=== PATIENT | female | born 1990 | race Caucasian/White ===

== ENCOUNTER 2017-07-21 10:46 | Emergency (ER) | payer OTHER ==
[~2017-07-21] VITALS: Ht 154.9 cm; Wt 83.9 kg
--- OUTSIDE RECORDS SUMMARY | 2017-07-21 10:51 | XMS REPORT | Continuity of Care Document ---
Author Author [facility] Address Unknown Phone Unavailable Allergies Medications Problems Date Dx Coded Attending Type Code Diagnosis Diagnosed By 05/26/2010 RADHA BOTELLO APRN V25.01 GENERAL COUNSELING ON PRESCRIPTION OF ORAL CONTRACEPTIVES 05/26/2010 CONY JACOB DO V25.01 GENERAL COUNSELING ON PRESCRIPTION OF ORAL CONTRACEPTIVES 09/07/2010 RADHA BOTELLO APRN 465.9 UPPER RESPIRATORY INFECTION 09/07/2010 RADHA BOTELLO APRN 525.9 TOOTH PAIN 09/07/2010 CONY JACOB DO 465.9 UPPER RESPIRATORY INFECTION 09/07/2010 CONY JACOB DO 525.9 TOOTH PAIN 06/18/2013 RADHA BOTELLO APRN 372.30 CONJUNCTIVITIS UNSPECIFIED 06/18/2013 CONY JACOB DO 372.30 CONJUNCTIVITIS UNSPECIFIED 09/28/2013 CONY JACOB DO 382.9 UNSPECIFIED OTITIS MEDIA 09/28/2013 CONY JACOB DO 461.9 SINUSITIS ACUTE 01/21/2015 ELIU JAMES Ot 626.2 Procedures Results Encounters ACCT No. Visit Date/Time Discharge Status Pt. Type Provider Facility Loc./Unit Complaint [id number] 09/28/2013 17:44:00 09/28/2013 23: 59:59 CLS Outpatient CONY JACOB DO [id number] 06/18/2013 18:16:00 06/18/2013 23: 59:59 CLS Outpatient RADHA BOTELLO APRN [id number] 01/05/2015 11:01:00 2014 23:59:59 CLS Outpatient ELIU JAMES Via [facility] RAD
[2017-07-21] MEDS ORDERED: ASPIRIN 81 MG CHEW (CHILDREN'S ASA) PO ONE (11:45)
[2017-07-21 11:49] LABS: BASOPHILS % (AUTO) 0 % (0-10); EOSINOPHILS # (AUTO) 0.2 10^3/uL (0.0-0.3); EOSINOPHILS % (AUTO) 2 % (0-10); LYMPHOCYTES # (AUTO) 2.8 X 10^3 (1.0-4.0); LYMPHOCYTES % (AUTO) 28 % (12-44); MEAN CORPUSCULAR HEMOGLOBIN 29 PG (25-34); MEAN CORPUSCULAR HGB CONC 35 G/DL (32-36); MEAN CORPUSCULAR VOLUME 83 FL (80-99); MEAN PLATELET VOLUME 10.3 FL (7.4-10.4); MONOCYTES # (AUTO) 0.9 X 10^3 (0.0-1.0); MONOCYTES % (AUTO) 9 % (0-12); NEUTROPHILS # (AUTO) 5.9 X 10^3 (1.8-7.8); NEUTROPHILS % (AUTO) 60 % (42-75); PLATELET COUNT 262 10^3/uL (130-400); RED BLOOD COUNT 5.28 10^6/uL (4.35-5.85); RED CELL DISTRIBUTION WIDTH 12.6 % (10.0-14.5); WHITE BLOOD COUNT 9.8 10^3/uL (4.3-11.0)
[2017-07-21 12:00] LABS: INR 0.9 (0.8-1.4); PROTHROMBIN TIME PATIENT 12.5 SEC (12.2-14.7)
[2017-07-21 12:11] LABS: ALANINE AMINOTRANSFERASE 43 U/L (0-55); ALBUMIN 4.4 GM/DL (3.2-4.5); AMYLASE 38 U/L (25-125); ANION GAP 11 MMOL/L (5-14); ASPARTATE AMINO TRANSFERASE 26 U/L (5-34); BILIRUBIN,TOTAL 0.4 MG/DL (0.1-1.0); BLOOD UREA NITROGEN 8 MG/DL (7-18); BUN/CREATININE RATIO 11; CALCIUM 9.8 MG/DL (8.5-10.1); CARBON DIOXIDE 23 MMOL/L (21-32); CHLORIDE 105 MMOL/L (98-107); CREATININE SERUM 0.75 MG/DL (0.60-1.30); GFR ESTIMATED > 60; GLUCOSE 115 MG/DL (70-105); LIPASE 18 U/L (8-78); POTASSIUM 3.6 MMOL/L (3.6-5.0); SODIUM 139 MMOL/L (135-145); TOTAL PROTEIN 7.7 GM/DL (6.4-8.2)
--- NOTE | 2017-07-21 12:16 | Diagnostic Imaging Report ---
INDICATION: Chest tightness for one week. FINDINGS: A single view of the chest shows normal heart size and vascularity. The lungs are clear. There is no effusion or pneumothorax. There is no bony abnormality. IMPRESSION: Normal chest. Dictated by: Dictated on workstation # [id number]
[2017-07-21 12:31] LABS: TROPONIN I < 0.30 NG/ML (<0.30)
--- NOTE | 2017-07-21 12:56 | ED Chest Pain ---
General Chief Complaint: Chest Pain Stated Complaint: CHEST PAIN X1 WEEK/DIARRHEA Nursing Triage Note: PT C/O CHEST TIGHTNESS X 1 WEEK. SHE REPORTS SHE WENT TO [facility] AND THEY SENT HER TO ED. SHE DENIES N/V, BUT C/O INTERMITTENT DYSPNEA. Nursing Sepsis Screen: No Definite Risk Source: patient History of Present Illness Time seen by provider: 11:25 Initial Comments PT ARRIVES VIA POV --SENT FROM [facility], NO CALL FROM THEM C/O CHEST PAIN OFF AND ON X 1 WEEK PAIN STARTED AGAIN TODAY AT 0500 ON WAKING AND HAS NOT WENT AWAY PAIN IS ALL ACROSS ANTERIOR CHEST AND FEELS LIKE TIGHTNESS/ HEAVINESS AND FEELS LIKE A TIGHT BELT ALL AROUND HER CHEST HAS SLIGHT BURNING SENSATION IN CHEST RATES PAIN 6/10 NOTHING WORSENS OR IMPROVES PAIN NO SHORTNESS OF BREATH NOW, BUT HAS HAD MILD INTERMITTENT SHORTNESS OF BREATH NO SWEATS NO NAUSEA/VOMITING--ATE BREAKFAST THIS AM WITHOUT PROBLEMS ( CEREAL ) NO PALPITATIONS NO DIZZINESS NO RECENT ILLNESS, COUGH, FEVER, ETC. NO SWELLING IN LEGS/ FEET OR PAIN IN CALVES. NO PROLONGED TRAVEL OR SITTING, ETC. NO HISTORY OF SIMILAR TOOK 1 TUMS/ROLAID THIS AM JUST PRIOR TO ARRIVAL WITHOUT RELIEF LMP 1 WEEK AGO, ALWAYS IRREGULAR-HAS PCOS. NO CONTROL PCP: DR. DARDEN Allergies and Home Medications Allergies Coded Allergies: No Known Drug Allergies (Unverified , 07/21/17) Home Medications Pantoprazole Sodium 40 Mg Tablet.dr, 40 MG PO DAILY, #15 Prescribed by: VIKTORIYA YEE on 07/21/17 1438 Sucralfate 1 Gm/10 Ml Oral.susp, 1 GM PO QID AC AND HS, #400 Prescribed by: VIKTORIYA YEE on 07/21/17 1438 Review of Systems Constitutional: no symptoms reported, No chills, No diaphoresis, No dizziness, No fever EENTM: No Symptoms Reported Respiratory: See HPI, Shortness of Air Cardiovascular: See HPI, Denies Edema, Denies Irregular Heart Rate, Denies Lightheadedness, Denies Palpitations, Denies Syncope Gastrointestinal: No Symptoms Reported, Denies Abdominal Pain, Denies Nausea, Denies Vomiting Genitourinary: No Symptoms Reported Musculoskeletal: no symptoms reported Skin: no symptoms reported Psychiatric/Neurological: No Symptoms Reported Endocrine: No Symptoms Reported Hematologic/Lymphatic: No Symptoms Reported Past [id number]-Tduzww-Wcjnmw Hx Patient Social History Alcohol Use: Rarely Uses Recreational Drug Use: No Smoking Status: Never a Smoker 2nd Hand Smoke Exposure: No Recent Foreign Travel: No Contact w/Someone Who Travel: No Recent Infectious Disease Expo: No Recent Hopitalizations: No Physical Abuse: No Sexual Abuse: No Seasonal Allergies Seasonal Allergies: No Surgeries History of Surgeries: Yes Surgeries: Adenoidectomy, Tonsillectomy Respiratory History of Respiratory Disorde: No Cardiovascular History of Cardiac Disorders: No Neurological History of Neurological Disord: No Reproductive System : No Female Reproductive Disorders: Menstrual Problems, Ovarian Cyst, Polycystic Ovarian Dis Genitourinary History of Genitourinary Disor: No Gastrointestinal History of Gastrointestinal Di: No Musculoskeletal History of Musculoskeletal Dis: No Endocrine History of Endocrine Disorders: No HEENT History of HEENT Disorders: No Cancer History of Cancer: No Psychosocial History of Psychiatric Problem: No Suicide Risk Score: 0 Integumentary History of Skin or Integumenta: No Blood Transfusions History of Blood Disorders: No Physical Exam Vital Signs Vital Sign - Last 12Hours 07/21/17 11:12 Temp 98.1 Pulse 92 Resp 16 B/P (MAP) 143/111 Pulse Ox 97 O2 Delivery Room Air Capillary Refill : Less Than 3 Seconds General Appearance: No Apparent Distress, Obese HEENT: PERRL/EOMI Neck: Full Range of Motion, Normal Inspection, Non Tender, Supple, No Carotid Bruit, No JVD Respiratory: Chest Non Tender, Normal Breath Sounds, No Accessory Muscle Use, No Respiratory Distress Cardiovascular: Regular Rate, Rhythm, No Edema, No JVD, No Murmur, Normal Peripheral Pulses Gastrointestinal: Normal Bowel Sounds, No Organomegaly, No Pulsatile Mass, Non Tender, Soft Extremity: Normal Capillary Refill, Normal Inspection, Normal Range of Motion, Non Tender, No Calf Tenderness, No Pedal Edema Neurologic/Psychiatric: Alert, Oriented x3, No Motor/Sensory Deficits, Normal Mood/Affect, 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 as Tested Skin: Normal Color, Warm/Dry Progress/Results/Core Measures Results/Orders Lab Results Laboratory Tests Test 07/21/17 11:40 Range/Units White Blood Count 9.8 4.3-11.0 10^3/uL Red Blood Count 5.28 4.35-5.85 10^6/uL Hemoglobin 15.2 11.5-16.0 G/DL Hematocrit 44 35-52 % Mean Corpuscular Volume 83 80-99 FL Mean Corpuscular Hemoglobin 29 25-34 PG Mean Corpuscular Hemoglobin Concent 35 32-36 G/DL Red Cell Distribution Width 12.6 10.0-14.5 % Platelet Count 262 130-400 10^3/uL Mean Platelet Volume 10.3 7.4-10.4 FL Neutrophils (%) (Auto) 60 42-75 % Lymphocytes (%) (Auto) 28 12-44 % Monocytes (%) (Auto) 9 0-12 % Eosinophils (%) (Auto) 2 0-10 % Basophils (%) (Auto) 0 0-10 % Neutrophils # (Auto) 5.9 1.8-7.8 X 10^3 Lymphocytes # (Auto) 2.8 1.0-4.0 X 10^3 Monocytes # (Auto) 0.9 0.0-1.0 X 10^3 Eosinophils # (Auto) 0.2 0.0-0.3 10^3/uL Basophils # (Auto) 0.0 0.0-0.1 10^3/uL Prothrombin Time 12.5 12.2-14.7 SEC INR Comment 0.9 0.8-1.4 Activated Partial Thromboplast Time 36 H 24-35 SEC Sodium Level 139 135-145 MMOL/L Potassium Level 3.6 3.6-5.0 MMOL/L Chloride Level 105 98-107 MMOL/L Carbon Dioxide Level 23 21-32 MMOL/L Anion Gap 11 5-14 MMOL/L Blood Urea Nitrogen 8 7-18 MG/DL Creatinine 0.75 0.60-1.30 MG/DL Estimat Glomerular Filtration Rate > 60 BUN/Creatinine Ratio 11 Glucose Level 115 H 70-105 MG/DL Calcium Level 9.8 8.5-10.1 MG/DL Magnesium Level 2.0 1.8-2.4 MG/DL Total Bilirubin 0.4 0.1-1.0 MG/DL Aspartate Amino Transf (AST/SGOT) 26 5-34 U/L Alanine Aminotransferase (ALT/SGPT) 43 0-55 U/L Alkaline Phosphatase 104 40-136 U/L Troponin I < 0.30 <0.30 NG/ML B-Type Natriuretic Peptide 14.6 <100.0 PG/ML Total Protein 7.7 6.4-8.2 GM/DL Albumin 4.4 3.2-4.5 GM/DL Amylase Level 38 25-125 U/L Lipase 18 8-78 U/L TSH [place] Testing 3.93 0.35-4.94 UIU/ML Serum Test, Qualitative NEGATIVE NEGATIVE My Orders Orders - VIKTORIYA YEE DO Saline Lock/Iv-Start (07/21/17 11:40) Ekg Tracing (07/21/17 11:40) Monitor-Rhythm Ecg Trace Only (07/21/17 11:40) Amylase (07/21/17 11:40) BNP (07/21/17 11:40) Cbc With Automated Diff (07/21/17 11:40) Comprehensive Metabolic Panel (07/21/17 11:40) Hcg,Qualitative Serum (07/21/17 11:40) Lipase (07/21/17 11:40) Magnesium (07/21/17 11:40) Protime With Inr (07/21/17 11:40) Partial Thromboplastin Time (07/21/17 11:40) Thyroid Analyzer (07/21/17 11:40) Troponin I (07/21/17 11:40) Chest 1 View, Ap/Pa Only (07/21/17 11:40) Aspirin Chewable Tablet (Baby Aspirin Ch (07/21/17 11:45) Ct Angio Chest W (07/21/17 12:55) Iohexol Injection (Omnipaque 350 Mg/Ml 1 (07/21/17 13:15) Ns (Ivpb) (Sodium Chloride 0.9% Ivpb Bag (07/21/17 13:15) Ketorolac Injection (Toradol Injection) (07/21/17 13:15) Medications Given in ED Current Medications Medications Dose Ordered Sig/Jossy Route Start Time Stop Time Status Last Admin Dose Admin Aspirin 324 mg ONCE ONCE PO 07/21/17 11:45 07/21/17 11:46 DC 07/21/17 11:45 324 MG Iohexol 100 ml ONCE ONCE IV 07/21/17 13:15 07/21/17 13:16 DC 07/21/17 13:13 125 ML Ketorolac Tromethamine 30 mg ONCE ONCE IVP 07/21/17 13:15 07/21/17 13:16 DC 07/21/17 13:40 30 MG Sodium Chloride 100 ml ONCE ONCE IV 07/21/17 13:15 07/21/17 13:16 DC 07/21/17 13:13 80 ML Vital Signs/I&O Vital Sign - Last 12Hours 07/21/17 07/21/17 11:12 11:12 Temp 98.1 Pulse 92 Resp 16 B/P (MAP) 143/111 Pulse Ox 97 O2 Delivery Room Air Room Air Blood Pressure Mean: 122 Progress Note : Progress Note UNEVENTFUL ER STAY ECG Initial ECG Impression Time: 12:12 Initial ECG Rate: 71 Initial ECG Rhythm: Normal Sinus (MILD SINUS ARRHYTHMIA) Initial ECG Comparisson: No Previous ECG Available Diagnostic Imaging Comments CXR--NO ACUTE PROCESS, PER RADIOLOGIST REPORT @ 1245 CT CHEST ANGIOGRAM--NO ACUTE PROCESS, PER RADIOLOGIST REPORT @ 1425 Reviewed: Reviewed by Me Departure Impression Impression: Primary Impression: Chest pain Additional Impression: POSSIBLE GERD Disposition: HOME, SELF-CARE Condition: Stable Departure-Patient Inst. Referrals: EMILY DARDEN MD (PCP/Family) Primary Care Physician Patient Instructions: Acid Reflux (Gastroesophageal Reflux Disease), Adult (DC) , Chest Pain (DC), Chest Pain That Is Not Caused by the Heart (DC) Add. Discharge Instructions: CLEAR LIQUIDS--WATER, BROTH, JELLO, GATORADE BRATS DIET--BANANAS, RICE, APPLESAUCE, TOAST, SALTINES FOLLOW UP WITH DR. DARDEN THIS WEEK FOR FURTHER CARE All discharge instructions reviewed with patient and/or family. Voiced understanding. Scripts Sucralfate (Carafate) 1 Gm/10 Ml Oral.susp 1 GM PO QID AC AND HS, #400 ML Prov: VIKTORIYA YEE DO 07/21/17 Pantoprazole Sodium (Protonix) 40 Mg Tablet.dr 40 MG PO DAILY, #15 TAB Prov: VIKTORIYA YEE DO 07/21/17 VIKTORIYA YEE DO Jul 21, 2017 12:56
[2017-07-21] MEDS ORDERED: NS 100 ML (IVPB) BAG IV ONE (13:15)
[2017-07-21] MEDS ORDERED: KETOROLAC 30 MG/ML VIAL IVP ONE (13:15)
[2017-07-21] MEDS ORDERED: IOHEXOL 350 MG/ML 100 ML (OMNIPAQUE 350) VIAL IV ONE (13:15)
--- NOTE | 2017-07-21 14:05 | Diagnostic Imaging Report ---
PROCEDURE: CT angiography of the chest with contrast. TECHNIQUE: Multiple contiguous axial images were obtained through the chest after uneventful bolus administration of intravenous contrast. Reconstructed CTA MIP acquisitions were also performed. INDICATION: Chest tightness for one week. FINDINGS: The lungs are clear. There is no effusion or pneumothorax. There is no mediastinal mass or hemorrhage. There is no aortic dissection. There is no pulmonary embolus. IMPRESSION: Normal CT angiography of the chest. Dictated by: Dictated on workstation # [id number]
[2017-07-21] MEDS ORDERED: SUCR1ORA5 PO (14:38)
[2017-07-21] MEDS ORDERED: PANT40TA2 PO (14:38)
[2017-07-21 14:52] VITALS: BP 132/74
== END 2017-07-21 14:52 | disposition home or self-care (01) ==
LOC: EDUNIT# 10:46 → ER 10:47
DX: R07.9 Chest pain, unspecified (principal); Z87.42 Personal history of other diseases of the female genital tract; Z90.89 Acquired absence of other organs
CPT/HCPCS: 36415; 71010; 71275; 80053; 82150; 83690; 83735; 83880; 84443; 84484; 84703; 85025; 85610; 85730; 93005; 93041

== ENCOUNTER 2017-08-10 19:04 | Emergency (ER) | payer OTHER ==
[~2017-08-10] VITALS: Ht 154.9 cm; Wt 83.9 kg
[~2017-08-10 19:04] MED LIST: PANT40TA2 PO; SUCR1ORA5 PO
[2017-08-10] MEDS ORDERED: PANTOPRAZOLE 40 MG/10 ML (PROTONIX) VIAL IV ONE (19:30)
[2017-08-10] MEDS ORDERED: ONDANSETRON 4 MG/2 ML (SDV) Z0FRAN IVP ONE (19:30)
[2017-08-10] MEDS ORDERED: HYOSCYAMINE 0.125 MG (LEVSIN) TAB SL ONE (19:30)
[2017-08-10 19:53] LABS: BASOPHILS # (AUTO) 0.1 10^3/uL (0.0-0.1); BASOPHILS % (AUTO) 0 % (0-10); EOSINOPHILS # (AUTO) 0.3 10^3/uL (0.0-0.3); EOSINOPHILS % (AUTO) 2 % (0-10); LYMPHOCYTES # (AUTO) 2.8 X 10^3 (1.0-4.0); LYMPHOCYTES % (AUTO) 21 % (12-44); MEAN CORPUSCULAR HEMOGLOBIN 29 PG (25-34); MEAN CORPUSCULAR HGB CONC 35 G/DL (32-36); MEAN CORPUSCULAR VOLUME 84 FL (80-99); MEAN PLATELET VOLUME 10.4 FL (7.4-10.4); MONOCYTES % (AUTO) 8 % (0-12); NEUTROPHILS # (AUTO) 9.1 X 10^3 (1.8-7.8); NEUTROPHILS % (AUTO) 69 % (42-75); PLATELET COUNT 254 10^3/uL (130-400); RED BLOOD COUNT 4.91 10^6/uL (4.35-5.85); RED CELL DISTRIBUTION WIDTH 12.7 % (10.0-14.5); WHITE BLOOD COUNT 13.2 10^3/uL (4.3-11.0)
[2017-08-10 19:53] LABS: BILIRUBIN,URINE NEGATIVE (NEGATIVE); KETONES,URINE NEGATIVE (NEGATIVE); LEUKOCYTE ESTERASE ,URINE 3+ (NEGATIVE); NITRITE,URINE NEGATIVE (NEGATIVE); PH,URINE 7 (5-9); PROTEIN,URINE NEGATIVE (NEGATIVE); UROBILINOGEN,URINE NORMAL (NORMAL)
--- NOTE | 2017-08-10 19:56 | ED Abdominal Pain ---
General Chief Complaint: Abdominal/GI Problems Stated Complaint: STOMACH PAIN Nursing Triage Note: C/O RUQ PAIN, PATIENT REPORTS WAS HERE FOR CHEST PAIN RECENTLY AND DIAGNOSED WITH GERD Sepsis Screen: No Definite Risk Source of Information: Patient, Old Records History of Present Illness Time Seen By Provider: 19:22 Initial Comments PT ARRIVES VIA POV WITH PARENTS C/O EPIGASTRIC AND RUQ AND LOWER CHEST PAIN ALL DAY, BUT WORSE SINCE THIS AFTERNOON C/O NAUSEA, NO VOMITING HAS HAD DIARRHEA X 1 WEEK, ONLY 1 EPISODE TODAY NO FEVER NO URINARY SYMPTOMS NO BACK PAIN SEEMS TO BE WORSE WITH FOOD--ATE CROISSANT AND COFFEE FROM [place] THIS AM, THEN HAD PART OF SALAD AND CHIPS AT 1500 TODAY. COULDN'T EAT DUE TO PAIN IN ABDOMEN HAS BEEN DRINKING WATER ALL DAY, DRANK SPRITE AROUND NOON. HAD 2 SIPS OF WATER ENROUTE AND IN WAITING ROOM. SEEN HERE 07/21/17 WITH C/O CHEST PAIN/SHORTNESS OF BREATH --LAB AND CT CHEST ANGIOGRAM ALL NEGATIVE. SYMPTOMS FELT TO BE GI-RELATED AND PT STARTED ON PROTONIX AND CARAFATE SYMPTOMS HAD IMPROVED WHILE ON MEDICATIONS. FINISHED MEDICATIONS OVER A WEEK AGO SEEN BY PCP AT [facility] AFTER ER VISIT, ON 07/26/17. AT THAT TIME WAS HAVING POULTRY VACCINATOR PROBLEMS OF IRREGULAR PERIODS AND PELVIC ULTRASOUND WAS DONE AND REPORTEDLY NORMAL LMP--ONGOING SINCE 07/25/17. PT HAS PCOS AND PERIODS ALWAYS IRREGULAR. QUIT OCP' S IN FEBRUARY OF THIS YEAR. PCP: [facility]. 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 HAS ALSO BEEN TO Allergies and Home Medications Allergies Coded Allergies: No Known Drug Allergies (Unverified , 07/21/17) Home Medications Hyoscyamine Sulfate 0.125 Mg Tab.subl, 1-2 TAB SL Q4H, #15 Prescribed by: VIKTORIYA YEE on 08/10/172110 Ketorolac Tromethamine 10 Mg Tablet, 10 MG PO Q6H, #15 Prescribed by: VIKTORIYA YEE on 08/10/172110 Nitrofurantoin Monohyd/M-Cryst 100 Mg Capsule, 100 MG PO BID, #20 Prescribed by: VIKTORIYA YEE on 08/10/172110 Ondansetron 4 Mg Tab.rapdis, 4 MG PO Q4H, #10 Prescribed by: VIKTORIYA YEE on 08/10/172110 Pantoprazole Sodium 40 Mg Tablet.dr, 40 MG PO DAILY, #15 Prescribed by: VIKTORIYA YEE on 08/10/172110 Sucralfate 1 Gm/10 Ml Oral.susp, 1 GM PO QID, #400 Prescribed by: VIKTORIYA YEE on 08/10/172110 Review of Systems Constitutional: no symptoms reported, No chills, No diaphoresis, No fever Respiratory: No Symptoms Reported Cardiovascular: See HPI, Chest Pain Gastrointestinal: See HPI, Abdominal Pain, Denies Constipated, Diarrhea, Nausea , Poor Appetite, Denies Poor Fluid Intake, Denies Vomiting Genitourinary: See HPI, Denies Burning, Denies Frequency, Denies Flank Pain Musculoskeletal: no symptoms reported Skin: no symptoms reported Psychiatric/Neurological: No Symptoms Reported Endocrine: No Symptoms Reported Hematologic/Lymphatic: No Symptoms Reported Past Pwbncjf-Msacua-Qbnobd Hx Patient Social History Alcohol Use: Denies Use Recreational Drug Use: No Smoking Status: Never a Smoker 2nd Hand Smoke Exposure: No Recent Foreign Travel: No Contact w/Someone Who Travel: No Recent Infectious Disease Expo: No Recent Hopitalizations: No Physical Abuse: No Sexual Abuse: No Seasonal Allergies Seasonal Allergies: No Surgeries History of Surgeries: Yes (WISDOM TEETH) Surgeries: Adenoidectomy, Tonsillectomy Respiratory History of Respiratory Disorde: No Cardiovascular History of Cardiac Disorders: No Neurological History of Neurological Disord: No Reproductive System : No Hx Reproductive Disorders: Yes Female Reproductive Disorders: Menstrual Problems, Ovarian Cyst, Polycystic Ovarian Dis Genitourinary History of Genitourinary Disor: No Gastrointestinal History of Gastrointestinal Di: No Musculoskeletal History of Musculoskeletal Dis: No Endocrine History of Endocrine Disorders: No HEENT History of HEENT Disorders: No Cancer History of Cancer: No Psychosocial History of Psychiatric Problem: No Suicide Risk Score: 0 Integumentary History of Skin or Integumenta: No Blood Transfusions History of Blood Disorders: No Physical Exam Vital Signs VS - Last 72 Hours, by Label 08/10/17 08/10/17 19:13 21:18 Temp 98.4 Pulse 83 83 Resp 18 18 B/P (MAP) 141/94 Pulse Ox 99 99 Capillary Refill : Less Than 3 Seconds General Appearance: WD/WN, no apparent distress, obese HEENT: PERRL/EOMI, No scleral icterus (R), No scleral icterus (L) Neck: normal inspection Respiratory: normal breath sounds, no respiratory distress, no accessory muscle use Cardiovascular: regular rate, rhythm, no murmur Gastrointestinal: normal bowel sounds, soft, no organomegaly, no pulsatile mass , No distended, No guarding, No rebound, tenderness (MODERATE EPIGASTRIC TENDERNESS, MILD RUQ AND LUQ TENDERNESS. 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 maintainer II-XII nml as tested, no motor/sensory deficits, alert, normal mood/affect, oriented x 3 Skin: normal color, warm/dry, No jaundice, No rash Progress/Results/Core Measures Results/Orders Lab Results Laboratory Tests Test 08/10/17 19:35 08/10/17 19:40 Range/Units Urine Color STRAW Urine Clarity CLEAR Urine pH 7 5-9 Urine Specific [place] 1.005 L 1.016-1.022 Urine Protein NEGATIVE NEGATIVE Urine Glucose (UA) NEGATIVE NEGATIVE Urine Ketones NEGATIVE NEGATIVE Urine Nitrite NEGATIVE NEGATIVE Urine Bilirubin NEGATIVE NEGATIVE Urine Urobilinogen NORMAL NORMAL MG/DL Urine Leukocyte Esterase 3+ H NEGATIVE Urine RBC (Auto) 5+ H NEGATIVE Urine RBC 5-10 H /HPF Urine WBC 25-50 H /HPF Urine Squamous Epithelial Cells >50 H /HPF Urine Renal Epithelial Cells NONE /HPF Urine Crystals NONE /LPF Urine Bacteria FEW H /HPF Urine Casts NONE /LPF Urine Mucus NEGATIVE /LPF Urine Culture Indicated YES White Blood Count 13.2 H 4.3-11.0 10^3/uL Red Blood Count 4.91 4.35-5.85 10^6/uL Hemoglobin 14.4 11.5-16.0 G/DL Hematocrit 41 35-52 % Mean Corpuscular Volume 84 80-99 FL Mean Corpuscular Hemoglobin 29 25-34 PG Mean Corpuscular Hemoglobin Concent 35 32-36 G/DL Red Cell Distribution Width 12.7 10.0-14.5 % Platelet Count 254 130-400 10^3/uL Mean Platelet Volume 10.4 7.4-10.4 FL Neutrophils (%) (Auto) 69 42-75 % Lymphocytes (%) (Auto) 21 12-44 % Monocytes (%) (Auto) 8 0-12 % Eosinophils (%) (Auto) 2 0-10 % Basophils (%) (Auto) 0 0-10 % Neutrophils # (Auto) 9.1 H 1.8-7.8 X 10^3 Lymphocytes # (Auto) 2.8 1.0-4.0 X 10^3 Monocytes # (Auto) 1.0 0.0-1.0 X 10^3 Eosinophils # (Auto) 0.3 0.0-0.3 10^3/uL Basophils # (Auto) 0.1 0.0-0.1 10^3/uL Sodium Level 140 135-145 MMOL/L Potassium Level 3.7 3.6-5.0 MMOL/L Chloride Level 107 98-107 MMOL/L Carbon Dioxide Level 20 L 21-32 MMOL/L Anion Gap 13 5-14 MMOL/L Blood Urea Nitrogen 8 7-18 MG/DL Creatinine 0.73 0.60-1.30 MG/DL Estimat Glomerular Filtration Rate > 60 BUN/Creatinine Ratio 11 Glucose Level 101 70-105 MG/DL Calcium Level 10.0 8.5-10.1 MG/DL Total Bilirubin 0.4 0.1-1.0 MG/DL Aspartate Amino Transf (AST/SGOT) 25 5-34 U/L Alanine Aminotransferase (ALT/SGPT) 47 0-55 U/L Alkaline Phosphatase 107 40-136 U/L Total Protein 7.9 6.4-8.2 GM/DL Albumin 4.3 3.2-4.5 GM/DL Amylase Level 42 25-125 U/L Lipase 21 8-78 U/L My Orders Orders - VIKTORIYA YEE DO Saline Lock/Iv-Start (08/10/17 19:30) Urine Bedside (08/10/17 19:30) Amylase (08/10/17:30) Cbc With Automated Diff (08/10/17:30) Comprehensive Metabolic Panel (08/10/17:30) Lipase (08/10/17 19:30) Ua Culture If Indicated (08/10/17:30) Ondansetron Injection (Zofran Injectio (08/10/17 19:30) Hyoscyamine Sl Tablet (Levsin Sl Tablet) (08/10/17 19:30) Pantoprazole Injection (Protonix Injecti (08/10/17 19:30) Us Abdomen Complete [id number] (08/10/17 19:47) Urine Culture (08/10/17 19:35) Ketorolac Injection (Toradol Injection) (08/10/17 20:15) Medications Given in ED Current Medications Medications Dose Ordered Sig/Jossy Route Start Time Stop Time Status Last Admin Dose Admin Hyoscyamine Sulfate 0.25 mg ONCE ONCE SL 08/10/17 19:30 08/10/17 19:33 DC 08/10/17 19:43 0.25 MG Ketorolac Tromethamine 30 mg ONCE ONCE IVP 08/10/17 20:15 08/10/17 20:17 DC 08/10/17 20:25 30 MG Ondansetron HCl 4 mg ONCE ONCE IVP 08/10/17 19:30 08/10/17 19:33 DC 08/10/17 19:43 4 MG Pantoprazole 40 mg ONCE ONCE IV 08/10/17 19:30 08/10/17 19:33 DC 08/10/17 19:43 40 MG Vital Signs/I&O Vital Sign - Last 12Hours 08/10/17 08/10/17 19:13 21:18 Temp 98.4 Pulse 83 83 Resp 18 18 B/P (MAP) 141/94 Pulse Ox 99 99 Blood Pressure Mean: 110 Point of Care Testing Urine -Bedside: Negative Progress Note : Progress Note SYMPTOMS COMPLETELY RESOLVED WITH MEDICATIONS Diagnostic Imaging Comments ULTRASOUND--NON-MOBILE, LARGE GALLSTONE 1.7 CM IN NECK OF GALLBLADDER, NO WALL THICKENING, BILE DUCT AND PANCREAS NOT VISUALIZED, NO OTHER ACUTE PROCESS--PER TECH REPORT AT 2100 AND PER RADIOLOGIST REPORT AT 2156 Reviewed: Reviewed by Me Departure Impression Impression: Primary Impression: Cholelithiasis Additional Impressions: Biliary colic Urinary tract infection Disposition: 01 HOME, SELF-CARE Condition: Improved Departure-Patient Inst. Referrals: CONY JACOB DO (PCP) Primary Care Physician FANI HELM APRN (Family) Primary Care Physician EZEQUIEL WHITMORE MD Patient Instructions: Gallstones (DC), Urinary Tract Infection, Adult (DC) Add. Discharge Instructions: CLEAR LIQUIDS--WATER, BROTH, JELLO, GATORADE BRATS DIET--BANANAS, RICE, APPLESAUCE, TOAST, SALTINES FOLLOW UP WITH DR. WHITMORE OR SURGEON OF CHOICE NEXT WEEK FOR FURTHER CARE-- CALL ON SATURDAY FOR APPOINTMENT All discharge instructions reviewed with patient and/or family. Voiced understanding. Scripts Ondansetron (Zofran Odt) 4 Mg Tab.rapdis 4 MG PO Q4H for Nausea/Vomiting, #10 TAB Prov: VIKTORIYA YEE DO 08/10/17 Pantoprazole Sodium (Protonix) 40 Mg Tablet.dr 40 MG PO DAILY, #15 TAB Prov: VIKTORIYA YEE DO 08/10/17 Hyoscyamine Sulfate (Levsin-Sl) 0.125 Mg Tab.subl 1-2 TAB SL Q4H for Abdominal Pain, #15 TAB Prov: VIKTORIYA YEE DO 08/10/17 Ketorolac Tromethamine (Ketorolac Tromethamine) 10 Mg Tablet 10 MG PO Q6H for Pain, #15 TAB Prov: VIKTORIYA YEE DO 08/10/17 Sucralfate (Carafate) 1 Gm/10 Ml Oral.susp 1 GM PO QID, #400 ML Prov: VIKTORIYA YEE DO 08/10/17 Nitrofurantoin Monohyd/M-Cryst (Macrobid 100 mg Capsule) 100 Mg Capsule 100 MG PO BID, #20 CAP Prov: VIKTORIYA YEE DO 08/10/17 VIKTORIYA YEE DO Aug 10, 2017 19:56
[2017-08-10 20:08] LABS: SQUAMOUS EPITHELIAL CELL,UR >50 /HPF; WBC,URINE 25-50 /HPF
[2017-08-10] MEDS ORDERED: KETOROLAC 30 MG/ML VIAL IVP ONE (20:15)
[2017-08-10 20:19] LABS: ALANINE AMINOTRANSFERASE 47 U/L (0-55); ALBUMIN 4.3 GM/DL (3.2-4.5); AMYLASE 42 U/L (25-125); ANION GAP 13 MMOL/L (5-14); ASPARTATE AMINO TRANSFERASE 25 U/L (5-34); BILIRUBIN,TOTAL 0.4 MG/DL (0.1-1.0); BLOOD UREA NITROGEN 8 MG/DL (7-18); BUN/CREATININE RATIO 11; CARBON DIOXIDE 20 MMOL/L (21-32); CHLORIDE 107 MMOL/L (98-107); CREATININE SERUM 0.73 MG/DL (0.60-1.30); GFR ESTIMATED > 60; GLUCOSE 101 MG/DL (70-105); LIPASE 21 U/L (8-78); POTASSIUM 3.7 MMOL/L (3.6-5.0); SODIUM 140 MMOL/L (135-145); TOTAL PROTEIN 7.9 GM/DL (6.4-8.2)
[2017-08-10] MEDS ORDERED: SUCR1ORA5 PO (21:11)
[2017-08-10] MEDS ORDERED: HYOS0.1283 SL (21:11)
[2017-08-10] MEDS ORDERED: NITR-65 PO (21:11)
[2017-08-10] MEDS ORDERED: PANT40TA2 PO (21:11)
[2017-08-10] MEDS ORDERED: KETO10TA PO (21:11)
[2017-08-10] MEDS ORDERED: ONDA4TAB8 PO (21:11)
[2017-08-10 21:18] VITALS: BP 141/94
--- NOTE | 2017-08-10 21:37 | Diagnostic Imaging Report ---
PROCEDURE: US abdomen, complete. TECHNIQUE: Multiple real-time grayscale images were obtained over the abdomen in various projections. INDICATION: Right upper quadrant, abdominal and chest pain. COMPARISON: None. FINDINGS: Diffuse increased echogenicity of the liver consistent with fatty infiltration. No focal liver mass or cyst is identified. There is a stone in the neck of the gallbladder, measuring up to 1.7 cm, which is non-mobile. No gallbladder wall thickening. No pericholecystic fluid. Negative sonographic Scott sign. The common bile duct and pancreas are not well seen. The spleen is normal in echogenicity, measuring up to 12.1 cm. The visualized aorta and IVC are normal in caliber. The right kidney measures 11.9 cm. The left kidney measures 12.1 cm. No renal mass, cyst or hydronephrosis. No free fluid in the abdomen. IMPRESSION: 1. Large gallstone, measuring up 1.7 cm, in the gallbladder neck which is not mobile. No findings of cholecystitis. 2. Hepatic steatosis. 3. The common bile duct and pancreas are not well seen. Dictated by: Dictated on workstation # [id number]
[2017-08-14] MEDS ORDERED: HYDR-3812 PO (12:11)
== END 2017-08-10 21:18 | disposition home or self-care (01) ==
LOC: ER 19:04
DX: K80.20 Calculus of gallbladder without cholecystitis without obstruction (principal); K80.50 Calculus of bile duct without cholangitis or cholecystitis without obstruction; N39.0 Urinary tract infection, site not specified; Z90.89 Acquired absence of other organs; Z87.448 Personal history of other diseases of urinary system
CPT/HCPCS: 36415; 76700; 80053; 81000; 82150; 83690; 84703; 85025; 87088

== ENCOUNTER → 2017-08-14 | Day surgery (SDC) | payer OTHER ==
[~2017-08-14] VITALS: Ht 154.9 cm; Wt 90.7 kg
[~2017-08-14] MED LIST changes: +BUP/EPI 0.5% 1:200,000 (MARCAINE) 10ML VIAL IJ ONE; +CATHETER FLUSH 10 ML SYR IV PRN; +DEXAMETHASONE 10 MG/ML (DECADRON) 1 ML VIAL ONE; +GLYCOPYRROLATE 0.2 MG/ML (ROBINUL) 2 ML VIAL ONE; +HYDR-3812 PO; +HYDROcodone/APAP 5 MG/325 MG (LORTAB) TAB PO PRN; +HYOS0.1283 SL; +KETO10TA PO; +LACTATED RINGERS 1,000 ML IV PRN; +LIDOCAINE PF 2% 5 ML (XYLOCAINE) VIAL ONE; +MEPERIDINE (DEMEROL) INJ 50 MG/ML IVP PRN; +MIDAZOLAM 2 MG/2 ML (VERSED) VIAL ONE; +NEOSTIGMINE (BLOXIVERZ ) 1 MG/1ML 10 ML VIAL ONE; +NITR-65 PO; +ONDA4TAB8 PO; +ONDANSETRON 4 MG/2 ML (SDV) Z0FRAN IVP PRN; +ONDANSETRON 4 MG/2 ML (SDV) Z0FRAN ONE; +PHENYLEPHRINE 100 MCG/ML 10 ML (ANESTHESIA) SYR ONE; +PROMETHAZINE INJ 25 MG/ML (PHENERGAN) AMP IVP PRN; +ROCURONIUM 50 MG/5 ML (ZEMURON) VIAL IV ONE; +SUCCINYLCHOLINE INJ 100 MG/5 ML SYR ONE; +ceFAZolin 2 GM/50 ML NS 50 ML IV ONE; +ceFAZolin 2 GM/NS 50 ML IV ONE; +fentaNYL INJECTION 100 MCG/2 ML AMP ONE; +metroNIDAZOLE 500 MG/100 ML IVPB (PRE-MIX) IV ONE; +metroNIDAZOLE 500MG/100ML IVPB 100 ML IV ONE; +proPOfol 200 MG/20 ML (DIPRIVAN) VIAL IV ONE
--- NOTE | 2017-08-14 09:46 | Progress Note-Pre Operative ---
Pre-Operative Progress Note H&P Reviewed The H&P was reviewed, patient examined and no changes noted. Date Seen by Provider: Aug 13, 2017 Time Seen by Provider: 17:05 Date H&P Reviewed: Aug 14, 2017 Time H&P Reviewed: 09:46 Pre-Operative Diagnosis: Gallstone EZEQUIEL WHITMORE MD Aug 14, 2017 9:46 am
[2017-08-14 09:59] VITALS: BP 131/91
--- NOTE | 2017-08-14 12:13 | Discharge Inst-Simple/Standard ---
Discharge Inst-Standard Discharge Medications New, Converted or Re-Newed RX: RX on Chart Patient Instructions/Follow Up Plan of Care/Instructions/FU: Dressings off in 48 hours. Incentive spirometry. Follow-up in 3 weeks. Activity as Tolerated: Yes Discharge Diet: No Restrictions EZEQUIEL WHITMORE MD Aug 14, 2017 12:13 pm
--- NOTE | 2017-08-14 14:35 | Operative Report ---
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 Gallstone 2./Acute cholecystitis Procedure Performed Robotic-assisted cholecystectomy Description of Procedure Anesthesia Type: General Estimated blood loss (mL): Minimal Specimen(s) collected/removed Gallbladder Description of the Procedure Indication for procedure: This lady presented with symptoms due to a solitary, 1.5 cm stone, impacted at the neck of the gallbladder. She was offered cholecystectomy using minimally invasive technique with the robotic assistance. Informed consent was obtained after reviewing the operative details and complications of wound infection and bile leak. Description of the procedure: She was placed supine on the operative table and general anesthesia induced using an endotracheal tube. 2 g of Ancef and 500 mg of Flagyl were administered intravenously as prophylaxis against wound infection. Sequential compression devices were placed around her legs, to minimize the risk of venous thrombosis. Abdomen was prepared and draped in the usual sterile manner. A supraumbilical incision was made and pneumoperitoneum established using a Veress needle. Intra -abdominal pressure was maintained at 17 mmHg, using carbon dioxide insufflation. A 12 mm trocar was placed and anatomy visualized using the high definition, 3-dimensional laparoscope, associated with da Christiano system. Gallbladder was acutely inflamed. Under direct view, I placed an 8 mm trocar over each side of the abdomen, followed by a 5 mm trocar over the left subcostal region. The patient was then turned into reverse Trendelenburg position, with the right side tilted up. Robotic system was then docked in place. Gallbladder was decompressed using the loop cautery, obtaining white bile, confirming acute cholecystitis. Subsequently, the fundus was retracted cephalad and infundibulum grasped with Cadiere forceps. Thickened and inflamed tissue around the neck of the gallbladder was incised using hook cautery, delineating the cystic duct and artery. Both were divided between locking clips. Cholecystectomy was then completed using hook cautery. Subhepatic space was irrigated with saline and the gallbladder placed in an Endo Catch bag, to be removed via the supraumbilical trocar site. The fascia over this incision had to be extended laterally to allow retrieval of the gallbladder with the largest stone. It was then closed using #1 Vicryl, in an interrupted fashion. Skin incisions were closed using 4-0 Vicryl, in a subcuticular fashion. 0.5 percent Marcaine with epinephrine was infiltrated along the incisions, both preemptively and at the conclusion of the operation. She tolerated the procedure well, was extubated in the operating room and taken to the recovery room in a stable condition. Findings of the Procedure see op report Allergies and Home Medications Allergies Coded Allergies: No Known Drug Allergies (Unverified , 07/21/17) Home Medications Hydrocodone/Acetaminophen 1 Each Tablet, 1-2 TAB PO 4-6HR PRN for PAIN, #30 Ref 0 Prescribed by: EZEQUIEL WHITMORE on 08/14/17 1211 Hyoscyamine Sulfate 0.125 Mg Tab.subl, 1-2 TAB SL Q4H, #15 Prescribed by: VIKTORIYA YEE on 08/10/172110 Ketorolac Tromethamine 10 Mg Tablet, 10 MG PO Q6H, #15 Prescribed by: VIKTORIYA YEE on 08/10/172110 Nitrofurantoin Monohyd/M-Cryst 100 Mg Capsule, 100 MG PO BID, #20 Prescribed by: VIKTORIYA YEE on 08/10/172110 Ondansetron 4 Mg Tab.rapdis, 4 MG PO Q4H, #10 Prescribed by: VIKTORIYA YEE on 08/10/172110 Pantoprazole Sodium 40 Mg Tablet.dr, 40 MG PO DAILY, #15 Prescribed by: VIKTORIYA YEE on 08/10/172110 Sucralfate 1 Gm/10 Ml Oral.susp, 1 GM PO QID, #400 Prescribed by: VIKTORIYA YEE on 08/10/172110 EZEQUIEL WHITMORE MD Aug 14, 2017 2:35 pm
[2017-08-14] MEDS: fentaNYL INJECTION 100 MCG/2 ML AMP IVP PRN ×2 (15:05→15:12)
[2017-08-14 15:50] VITALS: BP 136/96
[2017-08-14 16:30] VITALS: BP 129/84
[2017-08-14 17:00] VITALS: BP 127/76
[2017-08-14 18:40] VITALS: BP 127/76
== END | disposition home or self-care (01) ==
LOC: SDC 09:31
PROVIDERS: ATTEND Surgery
DX: K80.12 Calculus of gallbladder with acute and chronic cholecystitis without obstruction (principal); Z11.2 Encounter for screening for other bacterial diseases; Z87.891 Personal history of nicotine dependence
CPT/HCPCS: 84703; 87081; 94664

== ENCOUNTER → 2018-01-17 | Outpatient (CLI) | payer OTHER ==
[~2018-01-17] MED LIST changes: +ACHD5005 PO; -BUP/EPI 0.5% 1:200,000 (MARCAINE) 10ML VIAL IJ ONE; -CATHETER FLUSH 10 ML SYR IV PRN; -DEXAMETHASONE 10 MG/ML (DECADRON) 1 ML VIAL ONE; -GLYCOPYRROLATE 0.2 MG/ML (ROBINUL) 2 ML VIAL ONE; -HYDR-3812 PO; -HYDROcodone/APAP 5 MG/325 MG (LORTAB) TAB PO PRN; -LACTATED RINGERS 1,000 ML IV PRN; -LIDOCAINE PF 2% 5 ML (XYLOCAINE) VIAL ONE; -MEPERIDINE (DEMEROL) INJ 50 MG/ML IVP PRN; -MIDAZOLAM 2 MG/2 ML (VERSED) VIAL ONE; -NEOSTIGMINE (BLOXIVERZ ) 1 MG/1ML 10 ML VIAL ONE; -ONDANSETRON 4 MG/2 ML (SDV) Z0FRAN IVP PRN; -ONDANSETRON 4 MG/2 ML (SDV) Z0FRAN ONE; -PHENYLEPHRINE 100 MCG/ML 10 ML (ANESTHESIA) SYR ONE; -PROMETHAZINE INJ 25 MG/ML (PHENERGAN) AMP IVP PRN; -ROCURONIUM 50 MG/5 ML (ZEMURON) VIAL IV ONE; -SUCCINYLCHOLINE INJ 100 MG/5 ML SYR ONE; -ceFAZolin 2 GM/50 ML NS 50 ML IV ONE; -ceFAZolin 2 GM/NS 50 ML IV ONE; -fentaNYL INJECTION 100 MCG/2 ML AMP ONE; -metroNIDAZOLE 500 MG/100 ML IVPB (PRE-MIX) IV ONE; -metroNIDAZOLE 500MG/100ML IVPB 100 ML IV ONE; -proPOfol 200 MG/20 ML (DIPRIVAN) VIAL IV ONE
--- NOTE | 2018-01-17 13:35 | Diagnostic Imaging Report ---
INDICATION: Irregular menses. TECHNIQUE: Multiple real-time grayscale images were obtained of the pelvis in various projections endovaginally. Transabdominal imaging was also performed. FINDINGS: The uterus measures 6.1 x 4.0 x 3.3 cm. No uterine mass is identified. Endometrium is 7 mm in thickness. The right ovary measures 3.6 x 3.4 x 2.7 cm and the left ovary measures 1.7 x 1.6 x 2.0 cm. The right ovary does contain a simple-appearing cyst measuring 2.9 x 2.1 x 2.9 cm. The ovaries do demonstrate blood flow. No free fluid is seen. IMPRESSION: 2.9 cm simple right ovarian cyst. Dictated by: Dictated on workstation # [id number]
== END ==
LOC: RAD 12:29
PROVIDERS: ATTEND Nurse Practitioner Family
DX: N83.291 Other ovarian cyst, right side (principal)
CPT/HCPCS: 76830; 76856

== ENCOUNTER → 2018-11-16 | Outpatient (CLI) | payer OTHER | LOC: LAB 11:41 | PROVIDERS: ATTEND Obstetrics & Gynecology | DX: N97.0 Female infertility associated with anovulation (principal) | CPT/HCPCS: 36415; 82670; 84144 ==

== ENCOUNTER → 2018-11-22 | Outpatient (CLI) | payer OTHER | LOC: LAB 12:47 | PROVIDERS: ATTEND Obstetrics & Gynecology | DX: N97.0 Female infertility associated with anovulation (principal) | CPT/HCPCS: 36415; 84144 ==

== ENCOUNTER 2019-05-06 20:17 | Emergency (ER) | payer BC, OTHER ==
[~2019-05-06] VITALS: Ht 154.9 cm; Wt 104.3 kg
[2019-05-06] MEDS ORDERED: LACTATED RINGERS 1,000 ML IV SCH (20:30)
[2019-05-06 20:40] LABS: BILIRUBIN,URINE NEGATIVE (NEGATIVE); CLARITY,URINE SLIGHTLY CLOUDY; COLOR,URINE YELLOW; GLUCOSE, URINE (UA) NEGATIVE (NEGATIVE); KETONES,URINE NEGATIVE (NEGATIVE); LEUKOCYTE ESTERASE ,URINE 3+ (NEGATIVE); NITRITE,URINE NEGATIVE (NEGATIVE); PH,URINE 8 (5-9); PROTEIN,URINE NEGATIVE (NEGATIVE); UROBILINOGEN,URINE NORMAL (NORMAL)
[2019-05-06] MEDS ORDERED: ALPRAZolam 0.25 MG (XANAX) TAB PO ONE (20:45)
[2019-05-06 20:52] LABS: BACTERIA,URINE FEW /HPF
[2019-05-06 20:54] LABS: BASOPHILS % (AUTO) 0 % (0-10); EOSINOPHILS # (AUTO) 0.2 10^3/uL (0.0-0.3); EOSINOPHILS % (AUTO) 2 % (0-10); HEMATOCRIT 42 % (35-52); HEMOGLOBIN 14.4 G/DL (11.5-16.0); LYMPHOCYTES # (AUTO) 3.1 X 10^3 (1.0-4.0); LYMPHOCYTES % (AUTO) 34 % (12-44); MEAN CORPUSCULAR HEMOGLOBIN 28 PG (25-34); MEAN CORPUSCULAR HGB CONC 34 G/DL (32-36); MEAN CORPUSCULAR VOLUME 83 FL (80-99); MEAN PLATELET VOLUME 10.5 FL (7.4-10.4); MONOCYTES # (AUTO) 0.9 X 10^3 (0.0-1.0); MONOCYTES % (AUTO) 9 % (0-12); NEUTROPHILS # (AUTO) 5.1 X 10^3 (1.8-7.8); NEUTROPHILS % (AUTO) 55 % (42-75); PLATELET COUNT 310 10^3/uL (130-400); RED CELL DISTRIBUTION WIDTH 13.7 % (10.0-14.5); WHITE BLOOD COUNT 9.3 10^3/uL (4.3-11.0)
--- NOTE | 2019-05-06 20:56 | ED GU-Female ---
General Chief Complaint: - Urinary Stated Complaint: FEVER,N/D Nursing Triage Note: SADA HAS BEEN TREATED FOR UTI SINCE SATURDAY OF LAST WEEK WITH BACTRIM. SHE IS CONTINUING TO HAVE N/D AND FEELS FEVERISH. OVERALL NOT FEELING IMPROVED. Nursing Sepsis Screen: No Definite Risk Source: patient Exam Limitations: no limitations History of Present Illness Date Seen by Provider: May 06, 2019 Time Seen by Provider: 20:53 Initial Comments We are per private vehicle with concerns of a urinary tract infection. She presented to urgent care last week with reports of body numbness, some nausea and overall not feeling well. She did have some diarrhea. She was diagnosed with urinary tract infection given a shot of Rocephin as well as prescription for oral Bactrim. She presents today with report of intermittent nausea, chills, urinary frequency but no burning. She states the urinary frequency could be related to the increased fluid intake, she's been drinking a lot of cranberry juice and water to help with this urinary tract infection. She does have some diarrhea, does report that she is an anxious person and states that anxiety could be contributing to her symptoms. Timing/Duration: constant Severity/Quality: moderate Location: unknown (no pain) Radiation: none Activities at Onset: none Prior Genitourinary Problems: none Associated Symptoms: fever/chills (chills but no fever), urinary frequency Allergies and Home Medications Allergies Coded Allergies: No Known Drug Allergies (Unverified , 07/21/17) Home Medications Cefuroxime Axetil 250 Mg Tablet, 250 MG PO BID Prescribed by: JOSE ASHRAF on 05/06/192114 Hydrocodone Bit/Acetaminophen 1 Each Tablet, 1-2 TAB PO 4-6HR PRN for PAIN Prescribed by: EZEQUIEL WHITMORE on 08/14/17 1211 Ondansetron 4 Mg Tab.rapdis, 4 MG PO Q4H Prescribed by: VIKTORIYA YEE on 08/10/172110 Pantoprazole Sodium 40 Mg Tablet.dr, 40 MG PO DAILY Prescribed by: VIKTORIYA YEE on 08/10/172110 Patient Home Medication List Home Medication List Reviewed: Yes Review of Systems Review of Systems Constitutional: see HPI EENTM: see HPI Respiratory: no symptoms reported Cardiovascular: no symptoms reported Genitourinary: see HPI; denies burning, denies discharge, denies dysuria; frequency; denies flank pain, denies hematuria, denies incontinence, denies pain Musculoskeletal: see HPI Skin: no symptoms reported Psychiatric/Neurological: See HPI, Anxiety Endocrine: No Symptoms Reported Hematologic/Lymphatic: No Symptoms Reported Past Hgcofxq-Kjibig-Mbebim Hx Patient Social History Alcohol Use: Denies Use Recreational Drug Use: No Smoking Status: Never a Smoker 2nd Hand Smoke Exposure: No Recent Foreign Travel: No Contact w/Someone Who Travel: No Recent Infectious Disease Expo: No Recent Hopitalizations: No Seasonal Allergies Seasonal Allergies: No Past Medical History Surgeries: Yes (WISDOM TEETH) Adenoidectomy, Gallbladder, Tonsillectomy Respiratory: No Cardiac: No Neurological: No Reproductive Disorders: Yes Female Reproductive Disorders: Menstrual Problems, Ovarian Cyst, Polycystic Ovarian Dis Genitourinary: No Gastrointestinal: No Musculoskeletal: No Endocrine: No HEENT: No Cancer: No Psychosocial: No Integumentary: No Blood Disorders: No Physical Exam Vital Signs Vital Signs - First Documented 05/06/19 20:21 Temp 97.9 Pulse 132 Resp 18 B/P (MAP) 154/101 (118) Pulse Ox 99 Capillary Refill : Less Than 3 Seconds Height, Weight, BMI Height: 5'1.00" Weight: 230lbs. 0oz. [id number]; 37.8 BMI Method:Stated General Appearance: WD/WN, no apparent distress HEENT: PERRL/EOMI, normal ENT inspection Respiratory: normal breath sounds, no respiratory distress, no accessory muscle use Gastrointestinal: normal bowel sounds, non tender, soft Neurologic/Psychiatric: alert, normal mood/affect, oriented x 3 Skin: normal color, warm/dry Progress/Results/Core Measures Suspected Sepsis Recent Fever Within 48 Hours: No Infection Criteria Present: Documented Infection New/Unexplained Altered Menta: No Sepsis Screen: No Definite Risk SIRS Temperature:97.9 Pulse: 132 Respiratory Rate: 18 Laboratory Tests 05/06/19 20:40: White Blood Count 9.3 Blood Pressure 154 /101 Mean: 118 Laboratory Tests 05/06/19 20:40: Creatinine 0.81, Platelet Count 310, Total Bilirubin 0.2 Results/Orders Lab Results Laboratory Tests Test 05/06/19 20:33 05/06/19 20:40 Range/Units Urine Color YELLOW Urine Clarity SLIGHTLY CLOUDY Urine pH 8 5-9 Urine Specific [place] 1.010 L 1.016-1.022 Urine Protein NEGATIVE NEGATIVE Urine Glucose (UA) NEGATIVE NEGATIVE Urine Ketones NEGATIVE NEGATIVE Urine Nitrite NEGATIVE NEGATIVE Urine Bilirubin NEGATIVE NEGATIVE Urine Urobilinogen NORMAL NORMAL MG/DL Urine Leukocyte Esterase 3+ H NEGATIVE Urine RBC (Auto) NEGATIVE NEGATIVE Urine RBC NONE /HPF Urine WBC 10-25 H /HPF Urine Squamous Epithelial Cells 5-10 /HPF Urine Crystals NONE /LPF Urine Bacteria FEW H /HPF Urine Casts NONE /LPF Urine Mucus NEGATIVE /LPF Urine Culture Indicated YES White Blood Count 9.3 4.3-11.0 10^3/uL Red Blood Count 5.08 4.35-5.85 10^6/uL Hemoglobin 14.4 11.5-16.0 G/DL Hematocrit 42 35-52 % Mean Corpuscular Volume 83 80-99 FL Mean Corpuscular Hemoglobin 28 25-34 PG Mean Corpuscular Hemoglobin Concent 34 32-36 G/DL Red Cell Distribution Width 13.7 10.0-14.5 % Platelet Count 310 130-400 10^3/uL Mean Platelet Volume 10.5 H 7.4-10.4 FL Neutrophils (%) (Auto) 55 42-75 % Lymphocytes (%) (Auto) 34 12-44 % Monocytes (%) (Auto) 9 0-12 % Eosinophils (%) (Auto) 2 0-10 % Basophils (%) (Auto) 0 0-10 % Neutrophils # (Auto) 5.1 1.8-7.8 X 10^3 Lymphocytes # (Auto) 3.1 1.0-4.0 X 10^3 Monocytes # (Auto) 0.9 0.0-1.0 X 10^3 Eosinophils # (Auto) 0.2 0.0-0.3 10^3/uL Basophils # (Auto) 0.0 0.0-0.1 10^3/uL Sodium Level 138 135-145 MMOL/L Potassium Level 4.3 3.6-5.0 MMOL/L Chloride Level 107 98-107 MMOL/L Carbon Dioxide Level 18 L 21-32 MMOL/L Anion Gap 13 5-14 MMOL/L Blood Urea Nitrogen 8 7-18 MG/DL Creatinine 0.81 0.60-1.30 MG/DL Estimat Glomerular Filtration Rate > 60 BUN/Creatinine Ratio 10 Glucose Level 117 H 70-105 MG/DL Calcium Level 9.6 8.5-10.1 MG/DL Corrected Calcium 9.2 8.5-10.1 MG/DL Total Bilirubin 0.2 0.1-1.0 MG/DL Aspartate Amino Transf (AST/SGOT) 31 5-34 U/L Alanine Aminotransferase (ALT/SGPT) 41 0-55 U/L Alkaline Phosphatase 98 40-136 U/L Total Protein 8.3 H 6.4-8.2 GM/DL Albumin 4.5 3.2-4.5 GM/DL Thyroid Stimulating Hormone (TSH) 4.03 0.35-4.94 UIU/ML My Orders Orders - JOSE ASHRAF APRN Cbc With Automated Diff (05/06/19 20:29) Comprehensive Metabolic Panel (05/06/19 20:29) Ua Culture If Indicated (05/06/19 20:29) Urine Bedside (05/06/19 20:29) Ed Iv/Invasive Line Start (05/06/19 20:29) Lactated Ringers (Lr 1000 Ml Iv Solution (05/06/19 20:30) Alprazolam Tablet (Xanax Tablet) (05/06/19 20:45) Thyroid Stimulating Hormone (05/06/19 20:42) Urine Culture (05/06/19 20:33) Ceftriaxone For Iv Use (Rocephin For I (05/06/19 21:15) Phenazopyridine Tablet (Pyridium Tablet) (05/06/19 21:15) Medications Given in ED Current Medications Medications Dose Ordered Sig/Jossy Route Start Time Stop Time Status Last Admin Dose Admin Alprazolam 0.25 mg ONCE ONCE PO 05/06/19 20:45 05/06/19 20:46 DC 05/06/19 20:52 0.25 MG Ceftriaxone Sodium 1000 mg/ Sterile Water 10 ml @ 200 mls/hr ONCE ONCE IV 05/06/19 21:15 05/06/19 21:17 DC 05/06/19 21:29 200 MLS/HR Phenazopyridine HCl 100 mg ONCE ONCE PO 05/06/19 21:15 05/06/19 21:16 DC 05/06/19 21:25 100 MG Vital Signs/I&O 05/06/19 20:21 Temp 97.9 Pulse 132 Resp 18 B/P (MAP) 154/101 (118) Pulse Ox 99 Capillary Refill : Less Than 3 Seconds Blood Pressure Mean: 118 Departure Impression Primary Impression: Urinary tract infection Qualified Codes: N30.00 - Acute cystitis without hematuria Disposition: HOME, SELF-CARE Condition: Stable Departure-Patient Inst. Decision time for Depature: 21:14 Referrals: NO,LOCAL PHYSICIAN (PCP/Family) Primary Care Physician Patient Instructions: Urinary Tract Infection, Adult (DC) Add. Discharge Instructions: 1. Return to ER for any concerns 2. FOllow up with your doctor next week 3. All discharge instructions reviewed with patient and/or family. Voiced understanding. Scripts Cefuroxime Axetil (Cefuroxime) 250 Mg Tablet 250 MG PO BID, #10 TAB . Prov: JOSE ASHRAF APRN 05/06/19 JOSE ASHRAF APRN May 06, 2019 20:56
[2019-05-06 21:11] LABS: ALANINE AMINOTRANSFERASE 41 U/L (0-55); ALBUMIN 4.5 GM/DL (3.2-4.5); ALKALINE PHOSPHATASE 98 U/L (40-136); BILIRUBIN,TOTAL 0.2 MG/DL (0.1-1.0); BUN/CREATININE RATIO 10; CALCIUM 9.6 MG/DL (8.5-10.1); CARBON DIOXIDE 18 MMOL/L (21-32); CHLORIDE 107 MMOL/L (98-107); CREATININE SERUM 0.81 MG/DL (0.60-1.30); GFR ESTIMATED > 60; GLUCOSE 117 MG/DL (70-105); POTASSIUM 4.3 MMOL/L (3.6-5.0); SODIUM 138 MMOL/L (135-145); TOTAL PROTEIN 8.3 GM/DL (6.4-8.2)
[2019-05-06] MEDS ORDERED: CEFU250T80 PO ×2 (21:15→21:38)
[2019-05-06] MEDS ORDERED: PHENAZOPYRIDINE 100 MG (PYRIDIUM) TABLET PO ONE (21:15)
[2019-05-06] MEDS ORDERED: cefTRIAXone FOR IV USE 1,000 MG in WATER (STERILE) FOR INJECTION 10 ML IV ONE (21:15)
[2019-05-06 21:45] VITALS: BP 135/98
== END 2019-05-06 21:46 | disposition home or self-care (01) ==
LOC: EDUNIT# 20:17 → ER 20:18
DX: N39.0 Urinary tract infection, site not specified (principal); F41.9 Anxiety disorder, unspecified; Z90.89 Acquired absence of other organs; Z90.49 Acquired absence of other specified parts of digestive tract
CPT/HCPCS: 36415; 80053; 81000; 84443; 84703; 85025; 87088

== ENCOUNTER → 2019-07-20 | Outpatient (CLI) | payer BC ==
[~2019-07-20] MED LIST changes: +CEFU250T80 PO
--- NOTE | 2019-07-20 16:11 | Diagnostic Imaging Report ---
INDICATION: Neck pain. History of Lyme disease. COMPARISON: None FINDINGS: Frontal, lateral, and odontoid views of the cervical spine were submitted. The cervical spine is visualized up to the C7/T1 level on the lateral projection. There is normal vertebral height and alignment. There is no evidence of fracture or bone destruction. No prevertebral soft tissue swelling is seen. No significant degenerative changes are noted. The open-mouth view demonstrates normal C1/C2 alignment. IMPRESSION: 1. Normal cervical spine series. Dictated by: Dictated on workstation # [id number]
[2019-07-20 16:22] LABS: ABSOLUTE RETIC # 62 10e9/L (24-90); BASOPHILS % (AUTO) 0 % (0-10); EOSINOPHILS # (AUTO) 0.4 10^3/uL (0.0-0.3); EOSINOPHILS % (AUTO) 4 % (0-10); HEMATOCRIT 44 % (35-52); HEMOGLOBIN 14.6 G/DL (11.5-16.0); LYMPHOCYTES # (AUTO) 3.7 X 10^3 (1.0-4.0); LYMPHOCYTES % (AUTO) 33 % (12-44); MEAN CORPUSCULAR HEMOGLOBIN 28 PG (25-34); MEAN CORPUSCULAR HGB CONC 33 G/DL (32-36); MEAN CORPUSCULAR VOLUME 84 FL (80-99); MONOCYTES # (AUTO) 0.9 X 10^3 (0.0-1.0); MONOCYTES % (AUTO) 8 % (0-12); NEUTROPHILS # (AUTO) 6.1 X 10^3 (1.8-7.8); NEUTROPHILS % (AUTO) 55 % (42-75); PLATELET COUNT 292 10^3/uL (130-400); RED CELL DISTRIBUTION WIDTH 13.5 % (10.0-14.5); WHITE BLOOD COUNT 11.2 10^3/uL (4.3-11.0)
[2019-07-20 17:51] LABS: EOSINOPHILS % (MANUAL) 4 %; LYMPHOCYTES % (MANUAL) 34 %; METAMYELOCYTES % 1 %; MONOCYTES % (MANUAL) 10 %; NEUTROPHILS % (MANUAL) 51 %; RBC MORPH NORMAL
== END ==
LOC: RAD 15:45
PROVIDERS: ATTEND Nurse Practitioner Family
DX: D72.829 Elevated white blood cell count, unspecified (principal); M54.2 Cervicalgia; Z86.19 Personal history of other infectious and parasitic diseases
CPT/HCPCS: 36415; 72040; 85007; 85027; 85045

== ENCOUNTER 2019-09-24 | Outpatient (RCR) | payer BC ==
[2019-11-08] MEDS ORDERED: NITR-65 PO (22:38)
== END 2019-12-06 | disposition home or self-care (01) ==
LOC: CARD
PROVIDERS: ATTEND Nurse Practitioner Family
DX: R07.9 Chest pain, unspecified (principal)
CPT/HCPCS: 93270

== ENCOUNTER 2019-11-08 18:55 | Emergency (ER) | payer BC ==
[~2019-11-08] VITALS: Ht 154 cm; Wt 97.0 kg
[2019-11-08 19:32] LABS: BASOPHILS % (AUTO) 0 % (0-10); EOSINOPHILS # (AUTO) 0.3 10^3/uL (0.0-0.3); EOSINOPHILS % (AUTO) 2 % (0-10); HEMATOCRIT 42 % (35-52); HEMOGLOBIN 14.4 G/DL (11.5-16.0); LYMPHOCYTES # (AUTO) 4.3 X 10^3 (1.0-4.0); LYMPHOCYTES % (AUTO) 28 % (12-44); MEAN CORPUSCULAR HEMOGLOBIN 29 PG (25-34); MEAN CORPUSCULAR HGB CONC 34 G/DL (32-36); MEAN CORPUSCULAR VOLUME 84 FL (80-99); MEAN PLATELET VOLUME 10.8 FL (7.4-10.4); MONOCYTES # (AUTO) 1.1 X 10^3 (0.0-1.0); MONOCYTES % (AUTO) 7 % (0-12); NEUTROPHILS # (AUTO) 9.6 X 10^3 (1.8-7.8); NEUTROPHILS % (AUTO) 62 % (42-75); PLATELET COUNT 268 10^3/uL (130-400); RED CELL DISTRIBUTION WIDTH 12.9 % (10.0-14.5); WHITE BLOOD COUNT 15.3 10^3/uL (4.3-11.0)
--- NOTE | 2019-11-08 19:35 | ED Cardiac General ---
History of Present Illness General Chief Complaint: Cardiac/General Problems Stated Complaint: ELEV HR/147 BPM Nursing Triage Note: PT PRESENTS TO THE ED C/O CP AND PRESSURE THAT ONSET AT 1800 AFTER THE PT WOKE FROM A NAP. PT STATES HER HR AT HOME WAS 147. PT VERBALIZES SHE HAS HAD SIMILAR ISSUES IN THE PAST BUT NOT THIS SEVERE. PT STATES SHE IS ON DOXYCYCLINE FOR A RECENT DIAGNOSIS OF [place] SPOTTED FEVER AND HAS THESE SYMPTOMS EVER SINCE. Source: patient History of Present Illness Date Seen by Provider: Nov 08, 2019 Time Seen by Provider: 19:12 Initial Comments PT ARRIVES VIA POV FROM HOME PT STATES SHE WOKE UP FROM A NAP AT 1800 TONIGHT, AND STATES "I HAD A STRONG HEART BEAT LIKE IT WAS POUNDING OUT OF MY CHEST" STATES HER PULSE WAS 147, THEN IT STAYED AROUND 120 FOR AN HOUR, THEN CAME HERE. STATES SHE IS FEELING MUCH BETTER NOW. C/O SLIGHT SHORTNESS OF BREATH + SWEATS + DIZZINESS NO SYNCOPE NO NAUSEA/VOMITING PT HAS ONGOING LEFT UPPER CHEST PAIN WELL, FOR MONTHS--IMPROVES WITH BURPING ALSO HAS ONGOING NUMBNESS AND TINGLING IN HER ARMS AND LEGS FOR MONTHS--NOT OCCURRING NOW. STATES SHE HAS HAD THIS MULTIPLE TIMES "BUT VERY LIGHT AND ABLE TO CONTROL IT" STATES SHE WORE A HEART MONITOR FOR A MONTH, AND RETURNED IT 10/07/19, BUT DOES NOT KNOW RESULTS OF THE TESTS. STATES IT WAS ORDERED BY DR. DARDEN, BUT HAS NOT BEEN BACK TO HER MOST RECENTLY SHE HAS SEEN DR. ALCAZAR IN [place]--SAW HIM THIS WEEK AND HAD CXR AND EKG DONE. HAD LAB ORDERED BUT DID NOT HAVE IT DONE. ALSO HAS AN MRI SCHEDULED ON SATURDAY "BECAUSE OF THE THE HEAD STUFF THAT'S BEEN GOING ON" ( DOES NOT ELABORATE ON THIS) [facility] WITH A MULTITUDE OF ONGOING ISSUES, AND GOES ON AT LENGTH ABOUT ALL OF HER OTHER ISSUES RELATES ALL OF HER ONGOING PROBLEMS TO BEING DX WITH [place] SPOTTED FEVER LAST APRIL HAS BEEN ON MULTIPLE ROUNDS OF DOXYCYCLINE SINCE THEN--TOOK IT FOR 3 WEEKS IN APRIL/, TOOK IT FOR 2 WEEKS STARTING 09/15/29, AND THEN A WEEK LATER STARTED IT AGAIN AND TOOK IT FOR 4 WEEKS, AND FINISHED IT ON 10/30/19 HAS ALSO BEEN ON 2 DIFFERENT ANTIBIOTICS FOR A SINUS INFECTION IN THE LAST FEW MONTHS WELL. HAS ALSO HAD EGD WHICH SHOWED GASTRITIS AND ESOPHAGITIS LMP 1 1/2 MONTHS AGO, NO CONTROL. PERIODS IRREGULAR PCP: DR. DARDEN, ALSO HAS BEEN SEEING DR. ALCAZAR IN [place], HAS ALSO BEEN TO [facility] Allergies and Home Medications Allergies Coded Allergies: No Known Drug Allergies (Unverified , 07/21/17) Home Medications Cefuroxime Axetil 250 Mg Tablet, 250 MG PO BID . Prescribed by: JOSE ASHRAF on 05/06/192137 Hydrocodone Bit/Acetaminophen 1 Each Tablet, 1-2 TAB PO 4-6HR PRN for PAIN Prescribed by: EZEQUIEL WHITMORE on 08/14/17 1211 Nitrofurantoin Monohyd/M-Cryst 100 Mg Capsule, 100 MG PO BID Prescribed by: VIKTORIYA YEE on 11/08/192237 Ondansetron 4 Mg Tab.rapdis, 4 MG PO Q4H Prescribed by: VIKTORIYA YEE on 08/10/172110 Pantoprazole Sodium 40 Mg Tablet.dr, 40 MG PO DAILY Prescribed by: VIKTORIYA YEE on 08/10/172110 Patient Home Medication List Home Medication List Reviewed: Yes Review of Systems Review of Systems Constitutional: see HPI; No chills, No diaphoresis; dizziness; No fever, No malaise, No weakness EENTM: No Symptoms Reported Respiratory: See HPI; Denies Cough, Denies Orthopnea; Shortness of Air Cardiovascular: See HPI, Chest Pain; Denies Edema; Irregular Heart Rate, Lightheadedness, Palpitations; Denies Syncope Gastrointestinal: See HPI, Abdominal Pain (EPIGASTRIC PAIN), Nausea; Denies Vomiting Genitourinary: No Symptoms Reported Musculoskeletal: see HPI Skin: no symptoms reported Psychiatric/Neurological: See HPI, Anxiety, Numbness, Paresthesia; Denies Seizure; Tingling; Denies Weakness Endocrine: No Symptoms Reported Hematologic/Lymphatic: No Symptoms Reported Past Plhpamr-Nrrwfh-Sdzers Hx Past Med/Social Hx: Reviewed and Corrections made Patient Social History Alcohol Use: Occasionally Uses Recreational Drug Use: Yes (THC IN PAST) Drug of Choice: THC IN PAST Smoking Status: Never a Smoker 2nd Hand Smoke Exposure: No Recent Foreign Travel: No Contact w/Someone Who Travel: No Recent Infectious Disease Expo: No Recent Hopitalizations: No Seasonal Allergies Seasonal Allergies: No Past Medical History Surgeries: Yes (WISDOM TEETH; EGD) Adenoidectomy, Gallbladder, Tonsillectomy Respiratory: No Cardiac: No Palpitations Neurological: No : No Last Menstrual Period: Sep 23, 2019 Reproductive Disorders: Yes Female Reproductive Disorders: Menstrual Problems, Ovarian Cyst, Polycystic Ovarian Dis Genitourinary: No Gastrointestinal: Yes (S/P CHOLECYSTECTOMY) Gastroesophageal Reflux, Esophagitis Musculoskeletal: No Endocrine: No HEENT: No Cancer: No Psychosocial: No Integumentary: No Blood Disorders: No Family Medical History DX WITH BRI[place] SPOTTED FEVER 04/2019--MULTIPLE ROUNDS OF ANTIBIOTICS Physical Exam Vital Signs Vital Signs - First Documented 11/08/19 19:01 Temp 37.0 Pulse 125 Resp 20 B/P (MAP) 122/86 (98) Pulse Ox 100 O2 Delivery Room Air Capillary Refill : Less Than 3 Seconds Height, Weight, BMI Height: 5'1.00" Weight: 230lbs. 0oz. 104.485124ca; 40.00 BMI Method:Stated General Appearance: No Apparent Distress, Anxious, Obese HEENT: PERRL/EOMI, TMs Normal, Normal ENT Inspection, Pharynx Normal Neck: Full Range of Motion, Normal Inspection, Non Tender, Supple; No Carotid Bruit, No JVD Respiratory: Chest Non Tender, Normal Breath Sounds, No Accessory Muscle Use, No Respiratory Distress Cardiovascular: Regular Rate, Rhythm, No Edema, No JVD, No Murmur, Normal Peripheral Pulses Gastrointestinal: Normal Bowel Sounds, No Organomegaly, No Pulsatile Mass, Soft, Tenderness (MILD EPIGASTRIC TENDERNESS) Extremity: Normal Capillary Refill, Normal Inspection, Normal Range of Motion, Non Tender, No Calf Tenderness, No Pedal Edema Neurologic/Psychiatric: Alert, Oriented x3, No Motor/Sensory Deficits, lean specialist II-XII Norm as Tested Skin: Normal Color, Warm/Dry, Other (FEW TINY, PUNCTATE ( LESS THAN 1 MM) RED SPOTS ON TRUNK) Progress/Results/Core Measures Results/Orders Lab Results Laboratory Tests Test 11/08/19 19:14 11/08/19 20:04 Range/Units White Blood Count 15.3 H 4.3-11.0 10^3/uL Red Blood Count 4.99 4.35-5.85 10^6/uL Hemoglobin 14.4 11.5-16.0 G/DL Hematocrit 42 35-52 % Mean Corpuscular Volume 84 80-99 FL Mean Corpuscular Hemoglobin 29 25-34 PG Mean Corpuscular Hemoglobin Concent 34 32-36 G/DL Red Cell Distribution Width 12.9 10.0-14.5 % Platelet Count 268 130-400 10^3/uL Mean Platelet Volume 10.8 H 7.4-10.4 FL Neutrophils (%) (Auto) 62 42-75 % Lymphocytes (%) (Auto) 28 12-44 % Monocytes (%) (Auto) 7 0-12 % Eosinophils (%) (Auto) 2 0-10 % Basophils (%) (Auto) 0 0-10 % Neutrophils # (Auto) 9.6 H 1.8-7.8 X 10^3 Lymphocytes # (Auto) 4.3 H 1.0-4.0 X 10^3 Monocytes # (Auto) 1.1 H 0.0-1.0 X 10^3 Eosinophils # (Auto) 0.3 0.0-0.3 10^3/uL Basophils # (Auto) 0.0 0.0-0.1 10^3/uL Neutrophils % (Manual) 60 % Lymphocytes % (Manual) 32 % Monocytes % (Manual) 6 % Eosinophils % (Manual) 2 % Blood Morphology Comment NORMAL Prothrombin Time 13.0 12.2-14.7 SEC INR Comment 0.9 0.8-1.4 Activated Partial Thromboplast Time 35 24-35 SEC Sodium Level 138 135-145 MMOL/L Potassium Level 4.5 3.6-5.0 MMOL/L Chloride Level 106 98-107 MMOL/L Carbon Dioxide Level 19 L 21-32 MMOL/L Anion Gap 13 5-14 MMOL/L Blood Urea Nitrogen 11 7-18 MG/DL Creatinine 0.77 0.60-1.30 MG/DL Estimat Glomerular Filtration Rate > 60 BUN/Creatinine Ratio 14 Glucose Level 90 70-105 MG/DL Calcium Level 9.6 8.5-10.1 MG/DL Corrected Calcium 9.4 8.5-10.1 MG/DL Magnesium Level 2.0 1.6-2.4 MG/DL Total Bilirubin 0.2 0.1-1.0 MG/DL Aspartate Amino Transf (AST/SGOT) 40 H 5-34 U/L Alanine Aminotransferase (ALT/SGPT) 48 0-55 U/L Alkaline Phosphatase 95 40-136 U/L Total Creatine Kinase 54 29-168 U/L Creatine Kinase MB 0.5 <6.6 NG/ML Myoglobin 21.2 10.0-92.0 NG/ML Troponin I < 0.028 <0.028 NG/ML B-Type Natriuretic Peptide < 10.0 <100.0 PG/ML Total Protein 8.0 6.4-8.2 GM/DL Albumin 4.3 3.2-4.5 GM/DL Amylase Level 43 25-125 U/L Lipase 27 8-78 U/L TSH [place]ons Testing 3.02 0.35-4.94 UIU/ML Acetaminophen Level < 10 L 10-30 UG/ML Serum Alcohol < 10 <10 MG/DL Urine Color YELLOW Urine Clarity CLEAR Urine pH 6.0 5-9 Urine Specific Magnet 1.015 L 1.016-1.022 Urine Protein NEGATIVE NEGATIVE Urine Glucose (UA) NEGATIVE NEGATIVE Urine Ketones NEGATIVE NEGATIVE Urine Nitrite NEGATIVE NEGATIVE Urine Bilirubin NEGATIVE NEGATIVE Urine Urobilinogen 0.2 < = 1.0 MG/DL Urine Leukocyte Esterase 2+ H NEGATIVE Urine RBC (Auto) NEGATIVE NEGATIVE Urine RBC NONE /HPF Urine WBC 10-25 H /HPF Urine Squamous Epithelial Cells 5-10 /HPF Urine Crystals PRESENT H /LPF Urine Amorphous Sediment FEW EMANUEL URATES H /LPF Urine Bacteria FEW H /HPF Urine Casts NONE /LPF Urine Mucus SMALL H /LPF Urine Culture Indicated YES Urine Opiates Screen NEGATIVE NEGATIVE Urine Oxycodone Screen NEGATIVE NEGATIVE Urine Methadone Screen NEGATIVE NEGATIVE Urine Propoxyphene Screen NEGATIVE NEGATIVE Urine Barbiturates Screen NEGATIVE NEGATIVE Ur Tricyclic Antidepressants Screen NEGATIVE NEGATIVE Urine Phencyclidine Screen NEGATIVE NEGATIVE Urine Amphetamines Screen NEGATIVE NEGATIVE Urine Methamphetamines Screen NEGATIVE NEGATIVE Urine Benzodiazepines Screen NEGATIVE NEGATIVE Urine Cocaine Screen NEGATIVE NEGATIVE Urine Cannabinoids Screen NEGATIVE NEGATIVE Micro Results Microbiology 11/08/19 Urine Culture - Final, Complete 3 or more isolates My Orders Orders - VIKTORIYA YEE DO Ed Iv/Invasive Line Start (11/08/19 19:14) Urine Bedside (11/08/19 19:14) Ekg Tracing (11/08/19 19:14) Monitor-Rhythm Ecg Trace Only (11/08/19 19:14) Chest Pa/Lat (2 View) (11/08/19 19:14) Acetaminophen (11/08/19 19:14) Alcohol (11/08/19 19:14) Amylase (11/08/19 19:14) BNP (11/08/19 19:14) Cbc With Automated Diff (11/08/19 19:14) Comprehensive Metabolic Panel (11/08/19 19:14) Creatine Kinase (11/08/19 19:14) Creatine Kinase Mb (11/08/19 19:14) Drug Screen Stat (Urine) (11/08/19 19:14) Lipase (11/08/19 19:14) Magnesium (11/08/19 19:14) Protime With Inr (11/08/19 19:14) Partial Thromboplastin Time (11/08/19 19:14) Thyroid Analyzer (11/08/19 19:14) Ua Culture If Indicated (11/08/19 19:14) Myoglobin Serum (11/08/19 19:14) Troponin I (11/08/19 19:14) Manual Differential (11/08/19 19:14) Ct Angio Chest W (11/08/19 20:38) Urine Culture (11/08/19 20:04) Iohexol Injection (Omnipaque 350 Mg/Ml 1 (11/08/19 20:45) Received Contrast (Hold Metformin- Contr (11/08/19 20:45) Sodium Chloride Flush (Catheter Flush Sy (11/08/19 20:45) Ns (Ivpb) (Sodium Chloride 0.9% Ivpb Bag (11/08/19 20:45) Rx-Nitrofurantoin Sac (Rx-Macrobid) (11/08/19 22:34) Ekg Tracing (11/08/19 19:10) Medications Given in ED Vital Signs/I&O 11/08/19 11/08/19 19:01 22:59 Temp 37.0 37.0 Pulse 125 91 Resp 20 20 B/P (MAP) 122/86 (98) 127/96 (98) Pulse Ox 100 97 O2 Delivery Room Air Room Air Blood Pressure Mean: 98 Progress Progress Note : Progress Note UNEVENTFUL ER STAY NO ARRHYTHMIAS DURING ER STAY PT HAS BEEN PRESCRIBED CARAFATE AND REGLAN FOR GERD SYMPTOMS, BUT HAS NOT BEEN TAKING IT. STATES IT DID HELP IN THE PAST Initial ECG Impression Date: Nov 08, 2019 Initial ECG Impression Time: 19:09 Initial ECG Rate: 98 Initial ECG Rhythm: Normal Sinus EKG : EKG Time: 19:10 Rate: 108 Rhythm: S.Tach Diagnostic Imaging Comments CXR--NO ACUTE PROCESS, PER RADIOLOGIST REPORT AT 2037 CT CHEST ANGIOGRAM--NO ACUTE PROCESS, NO P.E. PER RADIOLOGIST REPORT AT 2199 Reviewed: Reviewed by Me Departure Impression Primary Impression: Tachycardia, paroxysmal Additional Impressions: Chest pain UTI (urinary tract infection) GERD SYMPTOMS Disposition: HOME, SELF-CARE Condition: Improved Departure-Patient Inst. Referrals: EMILY DARDEN MD (PCP/Family) Primary Care Physician GEORGIA HOYT MD Patient Instructions: Tachycardia (DC), Urinary Tract Infection, Adult (DC), Chest Pain (DC) Add. Discharge Instructions: HOME, REST CONTINUE YOUR PROTONIX. RESTART YOUR CARAFATE AND REGLAN AVOID CAFFEINE OR OTHER STIMULANTS LOTS OF CLEAR LIQUIDS TAKE YOUR PROBIOTIC 2 PILLS 4 TIMES A DAY FOR THE NEXT [address] UP WITH DR. HOYT THIS WEEK FOR FURTHER CARE --CALL IN AM TO SCHEDULE APPOINTMENT FOLLOW UP WITH DR. DARDEN OR DR. ALCAZAR THIS WEEK FOR FURTHER CARE All discharge instructions reviewed with patient and/or family. Voiced understan nakia. Scripts Nitrofurantoin Monohyd/M-Cryst (Macrobid 100 mg Capsule) 100 Mg Capsule 100 MG PO BID, #20 CAP Prov: VIKTORIYA YEE DO 11/08/19 VIKTORIYA YEE DO Nov 08, 2019 19:35
[2019-11-08 19:44] LABS: INR 0.9 (0.8-1.4)
[2019-11-08 19:53] LABS: ALANINE AMINOTRANSFERASE 48 U/L (0-55); ALBUMIN 4.3 GM/DL (3.2-4.5); ALKALINE PHOSPHATASE 95 U/L (40-136); AMYLASE 43 U/L (25-125); BILIRUBIN,TOTAL 0.2 MG/DL (0.1-1.0); BUN/CREATININE RATIO 14; CALCIUM 9.6 MG/DL (8.5-10.1); CARBON DIOXIDE 19 MMOL/L (21-32); CHLORIDE 106 MMOL/L (98-107); CREATINE KINASE 54 U/L (29-168); CREATININE SERUM 0.77 MG/DL (0.60-1.30); GFR ESTIMATED > 60; GLUCOSE 90 MG/DL (70-105); LIPASE 27 U/L (8-78); POTASSIUM 4.5 MMOL/L (3.6-5.0); SODIUM 138 MMOL/L (135-145)
[2019-11-08 19:54] LABS: ACETAMINOPHEN < 10 UG/ML (10-30)
[2019-11-08 20:12] LABS: CREATINE KINASE MB 0.5 NG/ML (<6.6); TSH (THYROID ANALYZER) 3.02 UIU/ML (0.35-4.94)
[2019-11-08 20:21] LABS: BILIRUBIN,URINE NEGATIVE (NEGATIVE); CLARITY,URINE CLEAR; COLOR,URINE YELLOW; GLUCOSE, URINE (UA) NEGATIVE (NEGATIVE); KETONES,URINE NEGATIVE (NEGATIVE); LEUKOCYTE ESTERASE ,URINE 2+ (NEGATIVE); NITRITE,URINE NEGATIVE (NEGATIVE); PROTEIN,URINE NEGATIVE (NEGATIVE)
--- NOTE | 2019-11-08 20:28 | Diagnostic Imaging Report ---
INDICATION: Tachycardia, history of previous [place] spotted fever. PA and lateral chest obtained at 0823 p.m. and compared to 07/21/2017. Heart and mediastinal silhouette are normal in appearance. The lungs are clear. There is no pneumothorax or pleural fluid. IMPRESSION: Negative chest. Dictated by: Dictated on workstation # [id number]
[2019-11-08 20:35] LABS: AMPHETAMINE SCREEN, URINE NEGATIVE (NEGATIVE); BARBITURATE SCREEN URINE NEGATIVE (NEGATIVE); BENZODIAZEPINES SCREEN URINE NEGATIVE (NEGATIVE); CANNABINOID SCREEN, URINE NEGATIVE (NEGATIVE); COCAINE SCREEN URINE NEGATIVE (NEGATIVE); METHADONE STAT NEGATIVE (NEGATIVE); METHAMPHETAMINE SCREEN URINE S NEGATIVE (NEGATIVE); OPIATE SCREEN URINE NEGATIVE (NEGATIVE); OXYCODONE STAT NEGATIVE (NEGATIVE); PROPOXYPHENE STAT NEGATIVE (NEGATIVE); TRICYCLIC ANTIDEPRESSANTS SCRE NEGATIVE (NEGATIVE)
[2019-11-08 20:39] LABS: BACTERIA,URINE FEW /HPF
[2019-11-08 20:40] LABS: AMORPHOUS SEDIMENT,UR FEW AMOR URATES /LPF
[2019-11-08 20:44] LABS: EOSINOPHILS % (MANUAL) 2 %; LYMPHOCYTES % (MANUAL) 32 %; MONOCYTES % (MANUAL) 6 %; NEUTROPHILS % (MANUAL) 60 %
[2019-11-08 20:45] LABS: RBC MORPH NORMAL
[2019-11-08] MEDS ORDERED: NS 100 ML (IVPB) BAG IV ONE (20:45)
[2019-11-08] MEDS ORDERED: HOLD METFORMIN - RECEIVED CONTRAST 20 ML VIAL IV SCH (20:45)
[2019-11-08] MEDS ORDERED: CATHETER FLUSH 10 ML SYR IV PRN (20:45)
[2019-11-08] MEDS ORDERED: IOHEXOL 350 MG/ML 100 ML (OMNIPAQUE 350) VIAL IV ONE (20:45)
--- NOTE | 2019-11-08 21:58 | Diagnostic Imaging Report ---
INDICATION: Tachycardia. TECHNIQUE: Multiple contiguous axial images were obtained through the chest after uneventful bolus administration of intravenous contrast. 3D reconstructed CTA MIP acquisitions were also performed. Auto Exposure Controls were utilized during the CT exam to meet ALARA standards for radiation dose reduction. COMPARISON: 07/21/2017. FINDINGS: The thoracic aorta shows no evidence of aneurysm or dissection. The pulmonary parenchymal vessels are well-opacified with no CT evidence of pulmonary emboli. There are no enlarged mediastinal or hilar nodes. There are no enlarged axillary nodes or chest wall lesions. There is no pleural or pericardial fluid. Lung parenchymal windows show no focal infiltrates. Visualized portions of the upper abdomen are unremarkable. IMPRESSION: Negative CTA chest. Dictated by: Dictated on workstation # [id number]
[2019-11-08] MEDS ORDERED: RX-NITROFURANTOIN 100 MG (MACROBID) CAP PPK#2 PO STA (22:34)
[2019-11-08] MEDS ORDERED: NITR-65 PO (22:38)
[2019-11-08 22:59] VITALS: BP 127/96
== END 2019-11-08 22:59 | disposition home or self-care (01) ==
LOC: EDUNIT# 18:55 → ER 18:57
DX: I47.9 Paroxysmal tachycardia, unspecified (principal); N39.0 Urinary tract infection, site not specified; R07.89 Other chest pain
CPT/HCPCS: 36415; 71046; 71275; 80053; 80306; 80320; 80329; 81000; 82150; 82550; 82553; 83690; 83735; 83874; 83880; 84443; 84484; 84703; 85007; 85027; 85610; 85730; 87088; 93005; 93041

== ENCOUNTER → 2019-12-01 | Outpatient (CLI) | payer BC | LOC: CARD 08:31 | PROVIDERS: ATTEND Internal Medicine Cardiovascular Disease | DX: R00.2 Palpitations (principal); K21.9 Gastro-esophageal reflux disease without esophagitis; N97.0 Female infertility associated with anovulation | CPT/HCPCS: 93306 ==

== ENCOUNTER 2020-10-21 05:38 | Outpatient (RCR) | payer BC ==
[~2020-10-21] VITALS: Ht 154.9 cm; Wt 102.7 kg
[~2020-10-21 05:38] MED LIST changes: +CITA20TA9 PO; +CLOR7.5T3 PO; +MULT-1136 PO; +PANT40TA52 PO
[2020-10-25] MEDS ORDERED: CLOM50TA18 PO (09:21)
[2020-10-25] MEDS ORDERED: IBUP-1780 PO (09:21)
[2020-10-25] MEDS ORDERED: OXC5T PO (09:21)
[2020-10-25] MEDS ORDERED: ACET-93 PO (09:21)
== END 2020-10-24 12:31 | disposition home or self-care (01) ==
LOC: PREOP 05:38
PROVIDERS: ATTEND Obstetrics & Gynecology
DX: Z01.812 Encounter for preprocedural laboratory examination (principal); N80.9 Endometriosis, unspecified; E28.2 Polycystic ovarian syndrome; N92.6 Irregular menstruation, unspecified; Z20.822 Contact with and (suspected) exposure to COVID-19
CPT/HCPCS: 87635

== ENCOUNTER 2020-10-25 06:21 | Day surgery (SDC) | payer BC ==
[~2020-10-25] VITALS: Ht 154.9 cm; Wt 102.7 kg
[2020-10-25] VITALS (10 sets, daily range): BP systolic 104–131; BP diastolic 56–82
[2020-10-25] MEDS ORDERED: ceFAZolin INJECTION 1,000 MG in WATER (STERILE) FOR INJECTION 10 ML IV ONE (06:30)
[2020-10-25] MEDS: LACTATED RINGERS 1,000 ML IV PRN ×2 (06:40→08:43)
[2020-10-25] MEDS ORDERED: LIDOCAINE PF 2% 5 ML (XYLOCAINE) VIAL ONE (06:43)
[2020-10-25] MEDS ORDERED: SEVOFLURANE (ULTANE) 15 ML INHAL SOLN ONE ×2 (06:43→08:58)
[2020-10-25] MEDS ORDERED: MIDAZOLAM 2 MG/2 ML (VERSED) VIAL ONE (06:43)
[2020-10-25] MEDS ORDERED: ONDANSETRON 4 MG/2 ML (SDV) Z0FRAN ONE ×2 (06:43→07:01)
[2020-10-25] MEDS ORDERED: proPOfol 200 MG/20 ML (DIPRIVAN) VIAL IV ONE (06:43)
[2020-10-25] MEDS ORDERED: fentaNYL INJECTION 100 MCG/2 ML AMP ONE (06:44)
[2020-10-25] MEDS ORDERED: NEOSTIGMINE 3 MG/3 ML VIAL ONE ×2 (06:53→08:57)
[2020-10-25] MEDS ORDERED: GLYCOPYRROLATE 0.2 MG/ML (ROBINUL) 2 ML VIAL ONE ×3 (06:53→08:57)
[2020-10-25] MEDS ORDERED: ROCURONIUM 10 MG/ML 5 ML SYRINGE IV ONE (06:53)
[2020-10-25] MEDS ORDERED: FAMOTIDINE 20MG/2ML IV (PEPCID) ONE (07:01)
[2020-10-25 07:14] LABS: BASOPHILS % (AUTO) 0 % (0-10); EOSINOPHILS # (AUTO) 0.3 10^3/uL (0.0-0.3); EOSINOPHILS % (AUTO) 3 % (0-10); HEMATOCRIT 40 % (35-52); HEMOGLOBIN 13.7 g/dL (11.5-16.0); LYMPHOCYTES # (AUTO) 2.9 10^3/uL (1.0-4.0); LYMPHOCYTES % (AUTO) 35 % (12-44); MEAN CORPUSCULAR HEMOGLOBIN 30 pg (25-34); MEAN CORPUSCULAR HGB CONC 34 g/dL (32-36); MEAN CORPUSCULAR VOLUME 87 fL (80-99); MEAN PLATELET VOLUME 13.5 fL (9.0-12.2); MONOCYTES # (AUTO) 0.6 10^3/uL (0.0-1.0); MONOCYTES % (AUTO) 7 % (0-12); NEUTROPHILS # (AUTO) 4.5 10^3/uL (1.8-7.8); NEUTROPHILS % (AUTO) 54 % (42-75); PLATELET COUNT 126 10^3/uL (130-400); WHITE BLOOD COUNT 8.4 10^3/uL (4.3-11.0)
[2020-10-25] MEDS ORDERED: FAMOTIDINE 20MG/2ML IV (PEPCID) IV ONE (07:15)
[2020-10-25] MEDS ORDERED: ONDANSETRON 4 MG/2 ML (SDV) Z0FRAN IV ONE (07:15)
[2020-10-25] MEDS ORDERED: BUPIVACAINE 0.25% 30 ML (SENSORCAINE) VIAL ONE (07:18)
[2020-10-25] MEDS ORDERED: METHYLENE BLUE 0.5% (PROVAYBLUE) 50 mg/10 ml vial IV ONE (07:18)
--- NOTE | 2020-10-25 07:42 | Progress Note-Pre Operative ---
Pre-Operative Progress Note H&P Reviewed The H&P was reviewed, patient examined and no changes noted. Date Seen by Provider: Oct 25, 2020 Time Seen by Provider: 07:30 Date H&P Reviewed: Oct 25, 2020 Time H&P Reviewed: 07:30 Pre-Operative Diagnosis: dysmenorrhea/chronic pelvic pain, irregular/abnormal uterine bleeding DIAMANTE WILSON DO Oct 25, 2020 07:41
[2020-10-25] MEDS ORDERED: HYDROmorphone 2 MG/ML VIAL (DILAUDID) ONE (08:45)
[2020-10-25] MEDS ORDERED: SUGAMMADEX 500 MG/5 ML VIAL (BRIDION) IV ONE (08:47)
[2020-10-25] MEDS ORDERED: KETOROLAC 30 MG/ML VIAL ONE (09:00)
--- NOTE | 2020-10-25 09:08 | Operative Report ---
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 Description of Procedure Anesthesia Type: General Estimated blood loss (mL): minimal Specimen(s) collected/removed endometrial curettings Description of the Procedure With informed consent the patient was taken to the operating room where she was prepped and draped in the usual sterile fashion in the dorsolithotomy position. A catheter was placed in the bladder to be removed in recovery. A speculum was placed in the vagina and the cervix was grasped with a tenaculum. A Codota uterine manipulator was advanced into the cervix to provide a means of manipulation of the uterus. Attention was now turned to the abdomen. The umbilicus was injected with 0.25% Marcaine and a 5 mm skin incision was made. The veress needle was then inserted and intraabdominal placement was confirmed with a saline drop test and a drop in pressure. The abdomen was insufflated to a maximum pressure of 15 mmHg. A 5 mm trocar was then inserted under direct visualization with the Optiview. The camera was inserted and the above mentioned finding were seen. There were some filmy adhesions of the omentum to the anterior abdominal wall, and more dense adhesions in the upper abdomen from the previous cholecystectomy. Those were well above the area of dissection and did not involve bowel so these were not taken down. But the filmy adhesions were. Two additional trocars were placed in the left lower quadrant avoiding the inferior epigastric vessels and lateral to the rectus muscles. I used the cautery to take down the filmy adhesions of the omentum and then did a full survey of the pelvis. There was no active endometriosis noted. There was nodularity on both tubes that may be due to endosalpingitis nodosum. At this point, the dye was inserted through the kronner manipulator and there was initially not spillage from either tube, but eventually there was spillage bilaterally. The pelvis was now irrigated. The gas was suctioned out and the instruments were removed. The skin incisions were closed with surgical glue and bandages were placed. Attention was returned to the pelvis The manipulator was removed and then the cervix was gently dilated to allow insertion of a curette. A curette was done removing a moderate amount of proliferative and polypoid appearing tissue. This was done until a gritty texture was heard. The tenaculum and speculum were removed from the vagina. The patient was now awakened and take to recovery in stable condition. Sponge, lap, needle and instrument counts were correct times two. Following surgery we discussed the findings of the surgery and the risk of ectopic, continued infertility. She may require [facility] referral but at this time there is spillage bilaterally. She would like to attempt and then may consider foster/adopt rather than [facility]SHLEY consultation/referral. 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 Allergies and Home Medications Allergies Coded Allergies: No Known Drug Allergies (Unverified , 07/21/17) Home Medications Acetaminophen 500 Mg Tablet, 1,000 MG PO Q8H PRN for PAIN-MILD (1-4) Prescribed by: DIAMANTE WILSON on 10/25/20920 Citalopram Hydrobromide 20 Mg Tablet, 20 MG PO DAILY, (Reported) Clomiphene Citrate 50 Mg Tablet, 50 MG PO DAILY start day 5 x 5 days Call clinic when you start the medication Prescribed by: DIAMANTE WILSON on 10/25/20920 Clorazepate Dipotassium 7.5 Mg Tablet, 7.5 MG PO DAILY, (Reported) Ibuprofen 800 Mg Tablet, 600 MG PO Q6HR Prescribed by: DIAMANTE WILSON on 10/25/20920 Multivitamin 1 Each Tablet, 1 EACH PO DAILY, (Reported) Oxycodone Hcl 5 Mg Tab, 5 MG PO Q4H PRN for PAIN-SEVERE (8-10) Prescribed by: DIAMANTE WILSON on 10/25/20920 Pantoprazole Sodium 40 Mg Tablet.dr, 40 MG PO DAILY, (Reported) Patient Home Medication List Home Medication List Reviewed: Yes DIAMANTE WILSON DO Oct 25, 2020 09:08
--- NOTE | 2020-10-25 09:13 | Discharge Inst-Simple/Standard ---
Discharge Inst-Standard Reconcile Patient Problems Problems Reviewed?: Yes Discharge Medications New, Converted or Re-Newed RX: Transmitted to Pharmacy Patient Instructions/Follow Up Plan of Care/Instructions/FU: Plan to start clomid on day 5 with timed intercoure. Present to clinic for labs as ordered (Alessandra will call you) Activity as Tolerated: Yes Discharge Diet: No Restrictions Return to The Hospital For: fever over 101, foul vaginal discharge, bleeding greater than 1 pad per hour x 2 hours Call clinic for any questions or concerns [phone] (Alessandra) or [phone] (main clinic office) DIAMANTE WILSON DO Oct 25, 2020 09:13
[2020-10-25] MEDS ORDERED: ONDANSETRON 4 MG/2 ML (SDV) Z0FRAN IVP PRN ×2 (09:15→09:30)
[2020-10-25] MEDS ORDERED: D5 LR IV SOLUTION 1,000 ML IV SCH (09:15)
[2020-10-25] MEDS ORDERED: ACETAMINOPHEN 500 MG TAB (TYLENOL) PO PRN (09:15)
[2020-10-25] MEDS ORDERED: KETOROLAC 30 MG/ML VIAL IVP ONE (09:15)
[2020-10-25] MEDS ORDERED: OXC5T PO (09:21)
[2020-10-25] MEDS ORDERED: IBUP-1780 PO (09:21)
[2020-10-25] MEDS ORDERED: ACET-93 PO (09:21)
[2020-10-25] MEDS ORDERED: CLOM50TA18 PO (09:21)
[2020-10-25] MEDS ORDERED: HYDROmorphone 2 MG/ML VIAL (DILAUDID) IV ONE (09:30)
[2020-10-25] MEDS ORDERED: ONDANSETRON 4 MG (ZOFRAN) ORAL DISSOLVE TAB ONE (11:12)
[2020-10-25] MEDS ORDERED: ONDANSETRON 4 MG (ZOFRAN) ORAL DISSOLVE TAB PO ONE (11:15)
[2020-10-25] MEDS ORDERED: IBUPROFEN 800 MG (MOTRIN) TAB PO SCH (12:00)
--- NOTE | 2020-10-25 16:02 | Anesthesia-General Post-Op ---
General Patient Condition Mental Status/LOC: Same as Preop Cardiovascular: Satisfactory Nausea/Vomiting: Absent Respiratory: Satisfactory Pain: Controlled Complications: Absent Post Op Complications Complications None Follow Up Care/Instructions Patient Instructions None needed. Anesthesia/Patient Condition Patient Condition Patient is doing well, no complaints, stable vital signs, no apparent adverse anesthesia problems. No complications reported per nursing. D/C home per [facility] – [place] Criteria: Yes JACINTO LOONEY CRNA Oct 25, 2020 16:02
== END 2020-10-25 11:15 | disposition home or self-care (01) ==
LOC: SDC 06:21
PROVIDERS: ATTEND Obstetrics & Gynecology
DX: N93.9 Abnormal uterine and vaginal bleeding, unspecified (principal); K66.0 Peritoneal adhesions (postprocedural) (postinfection); K21.9 Gastro-esophageal reflux disease without esophagitis; G62.9 Polyneuropathy, unspecified; N80.3 Endometriosis of pelvic peritoneum; E28.2 Polycystic ovarian syndrome; E66.01 Morbid (severe) obesity due to excess calories; Z68.41 Body mass index [BMI] 40.0-44.9, adult; G89.29 Other chronic pain; Z79.899 Other long term (current) drug therapy
CPT/HCPCS: 36415; 84703; 85025; 86850; 86900; 86901; 87081; 88305

== ENCOUNTER → 2021-02-12 | Outpatient (CLI) | payer BC ==
[~2021-02-12] MED LIST changes: +ACET-93 PO; +CLOM50TA18 PO; +IBUP-1780 PO; +OXC5T PO
== END ==
LOC: LAB 14:39
PROVIDERS: ATTEND Obstetrics & Gynecology
DX: N97.0 Female infertility associated with anovulation (principal)
CPT/HCPCS: 36415; 84144

== ENCOUNTER → 2021-12-25 | Outpatient (CLI) | payer BC ==
--- NOTE | 2021-12-25 10:42 | Diagnostic Imaging Report ---
PROCEDURE: Pelvic comp/transvaginal sonogram. TECHNIQUE: Complete transabdominal and transvaginal pelvic ultrasound was performed. In addition, limited pelvic Doppler was performed. INDICATION: Secondary dysmenorrhea. Uterus is anteverted measuring 7.3 x 3.7 x 5.0 cm. There are multiple cervical nabothian cysts present. No myometrial mass is detected. Endometrium is 4 mm in thickness. Right ovary measures 2.2 x 1.7 x 1.7 cm. The left ovary measures 2.0 x 1.5 x 1.6 cm. There is blood flow to the ovaries. No adnexal mass or free fluid is detected. IMPRESSION: Unremarkable transabdominal and transvaginal pelvic ultrasound. Dictated by: Dictated on workstation # [id number]
== END ==
LOC: RAD 09:44
PROVIDERS: ATTEND Obstetrics & Gynecology
DX: N94.5 Secondary dysmenorrhea (principal)
CPT/HCPCS: 76830; 76856

== ENCOUNTER 2021-12-29 09:20 | Outpatient (CLI) | payer BC ==
[~2021-12-29] VITALS: Ht 154.9 cm; Wt 109.1 kg
[2021-12-29] MEDS ORDERED: PROP10TA8 PO (13:40)
[2021-12-29] MEDS ORDERED: LEVO25CA4 PO (13:40)
== END 2021-12-29 13:49 ==
LOC: PREOP 09:20
PROVIDERS: ATTEND Obstetrics & Gynecology
DX: Z01.818 Encounter for other preprocedural examination (principal)

== ENCOUNTER 2022-01-08 07:21 | Day surgery (SDC) | payer BC ==
[~2022-01-08] VITALS: Ht 154.9 cm; Wt 109.1 kg
[2022-01-08] VITALS (11 sets, daily range): BP systolic 109–145; BP diastolic 52–81
[~2022-01-08 07:21] MED LIST changes: +LEVO25CA4 PO; +PROP10TA8 PO
[2022-01-08] MEDS ORDERED: BUPIVACAINE 0.25% 10 ML (SENSORCAINE) VIAL ONE (07:36)
[2022-01-08] MEDS ORDERED: proPOfol 200 MG/20 ML (DIPRIVAN) VIAL IV ONE (08:21)
[2022-01-08] MEDS ORDERED: LIDOCAINE PF 2% 5 ML (XYLOCAINE) VIAL ONE (08:21)
[2022-01-08] MEDS ORDERED: ONDANSETRON 4 MG/2 ML (SDV) Z0FRAN ONE (08:21)
[2022-01-08] MEDS ORDERED: ROCURONIUM 10 MG/ML 5 ML SYRINGE IV ONE (08:21)
[2022-01-08] MEDS ORDERED: fentaNYL INJ 100 MCG/2 ML AMP ONE (08:21)
[2022-01-08] MEDS ORDERED: MIDAZOLAM 2 MG/2 ML (VERSED) VIAL ONE (08:21)
--- NOTE | 2022-01-08 08:24 | Progress Note-Pre Operative ---
Pre-Operative Progress Note H&P Reviewed The H&P was reviewed, patient examined and no changes noted. Date Seen by Provider: Jan 08, 2022 Time Seen by Provider: 08:25 Date H&P Reviewed: Jan 08, 2022 Time H&P Reviewed: 08:35 Pre-Operative Diagnosis: CPP, Dysmenorrhea, Menorrhgia FRANKLYN MORGAN DO Jan 08, 2022 08:24
[2022-01-08 08:28] LABS: BASOPHILS # (AUTO) 0.1 10^3/uL (0.0-0.1); BASOPHILS % (AUTO) 1 % (0-10); EOSINOPHILS # (AUTO) 0.2 10^3/uL (0.0-0.3); EOSINOPHILS % (AUTO) 2 % (0-10); HEMATOCRIT 47 % (35-52); HEMOGLOBIN 15.8 g/dL (11.5-16.0); LYMPHOCYTES # (AUTO) 2.2 10^3/uL (1.0-4.0); LYMPHOCYTES % (AUTO) 23 % (12-44); MEAN CORPUSCULAR HEMOGLOBIN 29 pg (25-34); MEAN CORPUSCULAR HGB CONC 34 g/dL (32-36); MEAN CORPUSCULAR VOLUME 87 fL (80-99); MEAN PLATELET VOLUME 10.5 fL (9.0-12.2); MONOCYTES # (AUTO) 0.7 10^3/uL (0.0-1.0); MONOCYTES % (AUTO) 7 % (0-12); NEUTROPHILS # (AUTO) 6.7 10^3/uL (1.8-7.8); NEUTROPHILS % (AUTO) 68 % (42-75); PLATELET COUNT 319 10^3/uL (130-400); WHITE BLOOD COUNT 9.8 10^3/uL (4.3-11.0)
[2022-01-08] MEDS ORDERED: KETOROLAC 30 MG/ML VIAL IVP PRN (08:30)
[2022-01-08] MEDS ORDERED: NALOXONE 0.4 MG/ML 1 ML (NARCAN) VIAL IV PRN (08:30)
[2022-01-08] MEDS ORDERED: ZOLPIDEM 5 MG (AMBIEN) TAB PO PRN (08:30)
[2022-01-08] MEDS ORDERED: DOCUSATE SODIUM 100 MG (COLACE) CAP PO PRN (08:30)
[2022-01-08] MEDS ORDERED: LACTATED RINGERS 1,000 ML IV PRN (08:30)
[2022-01-08] MEDS ORDERED: SIMETHICONE 80 MG (MYLICON) CHEW PO PRN (08:30)
[2022-01-08] MEDS ORDERED: ANTACID SUSP 30 ML UDC (MYLANTA) PO PRN (08:30)
[2022-01-08] MEDS ORDERED: metroNIDAZOLE 500MG/100ML IVPB 100 ML IV ONE (08:30)
[2022-01-08] MEDS ORDERED: ONDANSETRON 4 MG/2 ML (SDV) Z0FRAN IV PRN (08:30)
[2022-01-08] MEDS ORDERED: HYDROcodone/APAP 7.5 MG/325 MG (LORTAB, LORCET PLUS) TABLET PO PRN (08:30)
[2022-01-08] MEDS ORDERED: LACTATED RINGERS 1,000 ML IV SCH (08:30)
[2022-01-08] MEDS ORDERED: ceFAZolin 2 GM IV Premixed 50 ML IV ONE (08:30)
[2022-01-08] MEDS ORDERED: CHLORASEPTIC LOZENGE MM PRN (08:30)
--- NOTE | 2022-01-08 08:33 | Discharge Inst-Women's Service ---
Discharge Inst-Women's Serv Depart Medication/Instructions New, Converted or Re-Newed RX: Transmitted to Pharmacy Problems Reviewed?: Yes Consults/Follow Up Additional Follow Up: Yes Orders/Referrals Dr. Harmon/ Op[facility] in 7-10 days and in 8 weeks Activity Activity: Activity as Tolerated Driving Instructions: No Driving for 1 Week NO SMOKING: NO SMOKING Nothing Inside Vagina: No Douching, No [place], No Tampons Diet Discharge Diet: No Restrictions Symptoms to Report to : Bleeding Excessive, Pain Increased, Fever Over 101 Degrees F, Vaginal Bleeding Increase, Questions/Concerns For Any Problems or Questions: Contact Your Physician Skin/Wound Care Infection Signs and Symptoms: Increased Redness, Foul Odor of Wound, Increased Drainage, Skin Itchy or Has a Rash, Increased Swelling, Temperature Above 101 F Stitches/Kandis/Dermabond: Dermabond, Care of Stitches Bathing Instructions: FRANKLYN Ceja DO Jan 08, 2022 08:33
[2022-01-08] MEDS ORDERED: IBUP-844 PO (08:34)
[2022-01-08] MEDS ORDERED: HYDR-34 PO (08:34)
[2022-01-08] MEDS ORDERED: SMT80CT PO (08:34)
[2022-01-08] MEDS ORDERED: DOCU100C37 PO (08:34)
[2022-01-08] MEDS ORDERED: PROP10TA8 PO (09:57)
[2022-01-08] MEDS ORDERED: LORA10TA7 PO (09:59)
[2022-01-08] MEDS ORDERED: GLYCOPYRROLATE 0.2 MG/ML (ROBINUL) 2 ML VIAL ONE (10:11)
[2022-01-08] MEDS ORDERED: NEOSTIGMINE 3 MG/3 ML VIAL ONE (10:11)
[2022-01-08] MEDS ORDERED: SEVOFLURANE (ULTANE) 15 ML INHAL SOLN ONE (10:22)
[2022-01-08] MEDS ORDERED: HYDROmorphone 2 MG/ML VIAL (DILAUDID) IV ONE (10:30)
[2022-01-08] MEDS ORDERED: MEPERIDINE (DEMEROL) INJ 50 MG/ML IVP ONE (10:30)
[2022-01-08] MEDS ORDERED: ONDANSETRON 4 MG/2 ML (SDV) Z0FRAN IVP PRN (10:30)
[2022-01-08] MEDS ORDERED: PROMETHAZINE INJ 25 MG/ML (PHENERGAN) AMP IVP ONE (10:30)
[2022-01-08] MEDS ORDERED: morphine INJ 10 MG/ML 1ML (SYR OR VIAL) IVP ONE (10:30)
[2022-01-08] MEDS ORDERED: HYDROmorphone 2 MG/ML VIAL (DILAUDID) ONE (10:32)
[2022-01-08] MEDS ORDERED: KETOROLAC 30 MG/ML VIAL ONE (10:32)
--- NOTE | 2022-01-08 14:36 | OPERATIVE REPORT ---
DATE OF SERVICE: 01/08/2022 PREOPERATIVE DIAGNOSES: 1. A 31-year-old female with chronic pelvic pain. 2. Dysmenorrhea. POSTOPERATIVE DIAGNOSES: 1. A 31-year-old female with chronic pelvic pain. 2. Dysmenorrhea. PROCEDURE: Robotic-assisted total laparoscopic hysterectomy with bilateral salpingectomy. SURGEON: Norman Harmon DO ANESTHESIA: General endotracheal. ESTIMATED BLOOD LOSS: Minimal. URINE OUTPUT: 20 mL clear at the end of procedure. FLUIDS: 800 mL of lactated Ringer's solution. FINDINGS: A bulky and hyperemic appearing uterus, grossly normal appearing bilateral fallopian tubes and ovaries. SPECIMEN SENT: Uterus, bilateral fallopian tubes. INDICATIONS FOR PROCEDURE: This 31-year-old female is a patient who had long seen my partner, Dr. Valdez, who has since moved in that process she did underwent the extensive workup for dysmenorrhea, menorrhagia in the past. This was becoming debilitating. She has attempted several conservative options including contraceptive pills, Depo-Provera, IUD placement, D and C, all done within the last 10 years. In the past year, she underwent an IUD placement and a D and C. More recently, she was started on continuous contraception. All of this was not able to alleviate her symptoms and causing her significant amounts of issues affecting her social life and personal life. Due to concerns of this pain an ongoing issue, the patient was opting to proceed with the most aggressive measure which would be a hysterectomy. Risks of the procedure were discussed with the patient in detail including risk of bleeding, infection, damage to surrounding structures including, but not limited to bowel, bladder, ureter, kidneys, possible need for reoperation, postoperative complications that may occur, risk from anesthesia, recovery timeframe, possible risk from hospital stay, hospitalization and even . After everything was discussed with the patient in detail, consent was obtained, the patient was taken to the operating room. OPERATIVE REPORT IN DETAIL: Once in the operating room, general anesthesia was found to be adequate, placed in dorsal lithotomy position, prepped and draped in normal sterile fashion. Timeout was performed and anesthesia was administered. A Foster catheter was placed using sterile technique. A weighted speculum inserted to the patient's vagina. Right angle retractor was used to visualize the cervix, which 0 Vicryl sutures placed anterior lip of the cervix and using my retraction. I then gently sound the uterine cavity, was found to be 8 cm. I selected an 8 cm Gloria uterine manipulator tip and a 3 cm colpotomy ring. The manipulator tip was advanced into the uterus. The colpotomy ring was advanced around the vaginal fornix after which bimanual manipulation is appreciated on abdominal examination. I then removed all the instruments from the patient's vagina, performed change of gloves. I obtained my attention to the abdomen, where at the midclavicular line subcostally, I introduced the Veress needle to intraperitoneal placement confirmed using saline drop test. An opening pressure of 4 mmHg was noted, proceeded to maximum pressure of 15 mmHg using CO2 gas, at which point, I made an infraumbilical incision after infiltrating the skin using Marcaine 0.25% and made an 8 mm incision with a knife, trocar was placed through this incision until intraperitoneal placement was confirmed using the da Christiano laparoscope. There was no evidence of damage from entry site. A brief scan of the upper abdominal anatomy appears grossly normal with no evidence of damage upon the Veress entry site. The Veress was then removed. I then had the patient placed in steep Trendelenburg and made visualize all my pelvic anatomy as defined in my findings above. I placed two lateral trocars. These were both 8 mm trocars approximately 10 cm lateral to my infraumbilical trocar. These were both placed under direct visualization and laparoscope in similar fashion. Once both these trocars were in place, I bring in the da Christiano robot and docked in appropriate fashion placing the vessel sealer in the left hand and monopolar kelsie in the right hand. I then took my place at the [employer] Christian[employer] operative console and performed the following dissection bilaterally starting at the uteroovarian ligament, I sealed and transected using the vessel sealer. I then created a window in the mesosalpinx and take this laterally down the mesosalpinx amputating the fallopian tube from its surrounding blood supply. I then grasped the entire round ligament, which I sealed and transected using vessel sealer. I then am able to grasp the broad ligament, which I sealed and transected using vessel sealer. I do this down to the level of the lower uterine segment, at which point I the anterior and posterior leaflets of the broad ligament. The anterior leaflet was taken around the anterior vaginal fornix and posterior leaflets was taken around the posterior vaginal fornix. This allows me to skeletonize the uterine vessels laterally, which I seal and transect using the vessel sealer. I then created a colpotomy at 12 o'clock position using monopolar kelise and took this circumferentially around the vaginal fornix amputating the cervix away from the vagina. The entire specimen is then removed through the vagina. The lateral vaginal apices of the vaginal cuff are then reapproximated using 2-0 Vicryl suture in a [id number] fashion colposuspending them to the uterosacral ligaments. I then closed the remainder of the vaginal cuff using 2-0 V-Loc in a running fashion, after which there was no active bleeding noted from any of my dissection planes. I then undocked the da Christiano robot and proceeded with remainder of the case laparoscopically. I copiously irrigated the pelvis using normal saline. Once again, there was no active bleeding noted from any of my dissection planes. I placed Surgiflo hemostatic agent over all my planes of dissection. I have the patient was taken out of steep Trendelenburg where I removed the lateral trocars under direct visualization of the laparoscope and infraumbilical trocars left in place to release insufflation and to introduce 10 mL of 0.25% Marcaine into the peritoneal cavity for postoperative pain management. I then removed this trocar as well. The skin reapproximated using 4-0 Monocryl and interrupted subcuticular stitches. Dermabond was applied to the incisions and Band-Aids were placed over the incisions as well. Foster catheter was left in place. The patient tolerated the procedure well and was taken to recovery area in stable condition. Lap and sponge counts were correct at the end of procedure. Instrument counts correct as well. Two grams of Ancef, 500 mg of Flagyl were given preoperatively for infection prophylaxis. Job ID: [id number] DocumentID: [id number] Dictated Date: 01/08/2022 11:01:01 Unloader Date: 01/08/2022 14:35:52 Dictated By: DO JAMI MAIN
--- NOTE | 2022-01-09 14:21 | Anesthesia-General Post-Op ---
General Patient Condition Mental Status/LOC: Same as Preop Cardiovascular: Satisfactory Nausea/Vomiting: Absent Respiratory: Satisfactory Pain: Controlled Complications: Absent Post Op Complications Complications None Follow Up Care/Instructions Patient Instructions None needed. Anesthesia/Patient Condition Patient Condition Patient is already discharged to home but she was doing well, no complaints, stable vital signs, no apparent adverse anesthesia problems prior to her discharge to home. JEAN-PIERRE GUERIN DO Jan 09, 2022 14:21
[2022-01-13] MEDS ORDERED: IBUPROFEN 600 MG (MOTRIN) TAB PO SCH (12:00)
== END 2022-01-08 18:00 | disposition home or self-care (01) ==
LOC: SDC 07:21 → WS 10:24 → SDC 18:00
PROVIDERS: ATTEND Obstetrics & Gynecology
DX: N94.6 Dysmenorrhea, unspecified (principal); N92.0 Excessive and frequent menstruation with regular cycle; N94.5 Secondary dysmenorrhea; G89.29 Other chronic pain; N85.00 Endometrial hyperplasia, unspecified; R10.2 Pelvic and perineal pain; N83.8 Other noninflammatory disorders of ovary, fallopian tube and broad ligament; E02 Subclinical iodine-deficiency hypothyroidism; E66.01 Morbid (severe) obesity due to excess calories; Z68.42 Body mass index [BMI] 45.0-49.9, adult
CPT/HCPCS: 36415; 84703; 85025; 86850; 86900; 86901; 87081

== ENCOUNTER 2022-01-12 21:46 | Inpatient (IN) | payer BC ==
[~2022-01-12] VITALS: Ht 154 cm; Wt 109.1 kg
[~2022-01-12 21:46] MED LIST changes: +DOCU100C37 PO; +HYDR-34 PO; +IBUP-844 PO; +LORA10TA7 PO; +SMT80CT PO
[2022-01-12] MEDS ORDERED: LACTATED RINGERS 1,000 ML IV ONE (22:00)
[2022-01-12 22:36] LABS: BILIRUBIN,URINE NEGATIVE (NEGATIVE); CLARITY,URINE CLEAR; COLOR,URINE YELLOW; GLUCOSE, URINE (UA) NEGATIVE (NEGATIVE); KETONES,URINE NEGATIVE (NEGATIVE); LEUKOCYTE ESTERASE ,URINE TRACE (NEGATIVE); NITRITE,URINE NEGATIVE (NEGATIVE); PROTEIN,URINE NEGATIVE (NEGATIVE)
[2022-01-12 22:38] LABS: BASOPHILS % (AUTO) 0 % (0-10); EOSINOPHILS # (AUTO) 0.7 10^3/uL (0.0-0.3); EOSINOPHILS % (AUTO) 5 % (0-10); HEMATOCRIT 40 % (35-52); HEMOGLOBIN 13.4 g/dL (11.5-16.0); LYMPHOCYTES # (AUTO) 3.8 10^3/uL (1.0-4.0); LYMPHOCYTES % (AUTO) 28 % (12-44); MEAN CORPUSCULAR HEMOGLOBIN 29 pg (25-34); MEAN CORPUSCULAR HGB CONC 34 g/dL (32-36); MEAN CORPUSCULAR VOLUME 87 fL (80-99); MEAN PLATELET VOLUME 10.3 fL (9.0-12.2); MONOCYTES # (AUTO) 0.7 10^3/uL (0.0-1.0); MONOCYTES % (AUTO) 5 % (0-12); NEUTROPHILS # (AUTO) 8.3 10^3/uL (1.8-7.8); NEUTROPHILS % (AUTO) 61 % (42-75); PLATELET COUNT 274 10^3/uL (130-400); WHITE BLOOD COUNT 13.6 10^3/uL (4.3-11.0)
[2022-01-12] MEDS ORDERED: ACETAMINOPHEN 500 MG TAB (TYLENOL) PO ONE (22:45)
[2022-01-12] MEDS ORDERED: IBUPROFEN 800 MG (MOTRIN) TAB PO ONE (22:45)
[2022-01-12 22:47] LABS: ALBUMIN 3.7 GM/DL (3.2-4.5)
[2022-01-12 22:48] LABS: CALCIUM 8.9 MG/DL (8.5-10.1)
[2022-01-12 22:48] LABS: BACTERIA,URINE NEGATIVE /HPF; SQUAMOUS EPITHELIAL CELL,UR 0-2 /HPF; WBC,URINE 0-2 /HPF
[2022-01-12 22:49] LABS: TOTAL PROTEIN 6.6 GM/DL (6.4-8.2)
[2022-01-12 22:51] LABS: BILIRUBIN,TOTAL 0.4 MG/DL (0.1-1.0)
[2022-01-12 22:53] LABS: CREATININE SERUM 0.81 MG/DL (0.60-1.30)
--- NOTE | 2022-01-12 23:07 | Diagnostic Imaging Report ---
EXAMINATION: Chest radiograph, portable AP view. DATE: 01/12/2022 10:42 PM INDICATION: 31-year-old female, fever. Hysterectomy on January 08, 2022. COMPARISON: July 21, 2017. FINDINGS: Heart size and mediastinal contours are unremarkable. There is no identified pneumothorax. There is no large pleural effusion. There is no identified focal airspace consolidation. IMPRESSION: No identified acute cardiopulmonary abnormality. Dictated by: Dictated on workstation # [id number]
--- NOTE | 2022-01-12 23:14 | ED General ---
General Chief Complaint: Post OP Complications/Pain Stated Complaint: POST OP FEVER/CHILLS/BODYACHES Nursing Triage Note: HYSTERECTOMY 01/08/22 C/O GENERALIZED BODY ACHES, LOW FEVER SINCE SURGERY, WORSE TODAY. Source of Information: Patient History of Present Illness Date Seen by Provider: Jan 12, 2022 Time Seen by Provider: 22:00 Initial Comments PT ARRIVES VIA POV FROM HOME PT HAD ROBOTIC ASSISTED LAVH/BSO BY DR. MORGAN ON 01/08/22 FOR CHRONIC PELVIC PAIN AND DYSMENORRHEA PT BEGAN RUNNING A FEVER 2 DAYS AGO UP TO 100.6 TONIGHT, SHE BEGAN TO HAVE CHILLS , SO SHE CAME TO ER TEMP IS 102.4 HERE PT HAS HAD BODY ACHES AND SLIGHT HEADACHE--STATES SHE FREQUENTLY HAS HEADACHES AND IS NOT ANY DIFFERENT THAN HER USUAL HEADACHES NO SIGNIFICANT ABDOMINAL PAIN OR ANY PROBLEMS WITH INCISIONS NO NAUSEA/VOMITING/DIARRHEA/CONSTIPATION. HAS BEEN EATING AND DRINKING WELL NO PROBLEMS URINATING, HAD SLIGHT DISCOMFORT AFTER SURGERY FROM CATHETER NO COUGH NO SHORTNESS OF BREATH OR PAIN WITH BREATHING THROAT WAS A LITTLE SORE AFTER SURGERY, BUT NOT NOW. HAS NOT ATTEMPTED TO CONTACT DR. 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 MORGAN Allergies and Home Medications Allergies Coded Allergies: No Known Drug Allergies (Unverified , 07/21/17) Patient Home Medication List Home Medication List Reviewed: Yes Citalopram Hydrobromide (Citalopram HBr) 20 Mg Tablet, 20 MG PO DAILY, (Re ported) Entered as Reported by: REENA ROGER on 10/19/20 1331 Last Action: Last Taken Edited Docusate Sodium (Docusate Sodium) 100 Mg Capsule, 100 MG PO BID PRN for CONSTIPATION-1ST LINE Prescribed by: FRANKLYN MORGAN on 01/08/22 0834 Last Action: Last Taken Edited Hydrocodone Bit/Acetaminophen (HYDROcodone/APAP 7.5/325 TAB) 1 Ea Tablet, 1-2 EA PO Q6HR PRN for PAIN-MODERATE (5-7) Prescribed by: FRANKLYN MORGAN on 01/08/22 0835 Last Action: Last Taken Edited Ibuprofen (Ibu) 600 Mg Tablet, 600 MG PO Q6HR Prescribed by: FRANKLYN MORGAN on 01/08/22 0834 Last Action: Last Taken Edited Levothyroxine Sodium (Levothyroxine) 25 Mcg Capsule, 25 MCG PO DAILY, (Reported) Entered as Reported by: KAREN FARIA on 12/29/21 1340 Last Action: Last Taken Edited Loratadine (Loratadine) 10 Mg Tablet, 10 MG PO DAILY, (Reported) Entered as Reported by: MALDONADO MARTIN on 01/08/22 0959 Last Action: Last Taken Edited Multivitamin (Multivitamin) 1 Each Tablet, 1 EACH PO DAILY, (Reported) Entered as Reported by: REENA ROGER on 10/19/20 1331 Last Action: Last Taken Edited Propranolol HCl (Propranolol HCl) 10 Mg Tablet, 5 MG PO BID PRN for PRN, ( Reported) Entered as Reported by: KAREN FARIA on 12/29/21 1340 Last Action: Last Taken Edited Propranolol HCl (Propranolol HCl) 10 Mg Tablet, 10 MG PO HS, (Reported) Entered as Reported by: MALDONADO MARTIN on 01/08/22 0957 Last Action: Last Taken Edited Simethicone (Mi-Acid) 80 Mg Tab.chew, 40 MG PO TID PRN for INDIGESTION 2ND LINE Prescribed by: FRANKLYN MORGAN on 01/08/22833 Last Action: Last Taken Edited Discontinued Medications Acetaminophen (Acetaminophen) 500 Mg Tablet, 1,000 MG PO Q8H PRN for PAIN-MILD (1-4) Prescribed by: DIAMANTE WILSON on 10/25/20920 Ibuprofen (Ibuprofen) 800 Mg Tablet, 600 MG PO Q6HR Prescribed by: DIAMANTE WILSON on 10/25/20920 Review of Systems Review of Systems Constitutional: see HPI, chills, fever EENTM: see HPI Respiratory: no symptoms reported Cardiovascular: no symptoms reported Gastrointestinal: see HPI Genitourinary: see HPI Musculoskeletal: see HPI Skin: no symptoms reported; No rash Psychiatric/Neurological: See HPI Hematologic/Lymphatic: No Symptoms Reported Immunological/Allergic: no symptoms reported Past Zshhpuy-Mobwqu-Eekgks Hx Patient Social History Tobacco Use?: No Substance use?: No Alcohol Use?: Yes Alcohol Frequency: Once in a while Pt feels they are or have been: No Immunizations Up To Date Tetanus Booster (TDap): Less than 5yrs PED Vaccines UTD: No First/Initial COVID19 Vaccinat: 2020 Second COVID19 Vaccination Tylor: 2020 Seasonal Allergies Seasonal Allergies: Yes Past Medical History Surgery/Hospitalization HX: HYSTERECTOMY, DENTAL/WISDOM TEETH REMOVED, EGD, T/A, GALLBLADDER, D&C GERD, UTI, PAROXIMAL TACHYCARDIA, BRI[place] SPOTTED FEVER, PCOS, HYPOTHRYOIDISM, HTN Surgeries: Yes (WISDOM TEETH, D&C) Adenoidectomy, Gallbladder, Hysterectomy, Oophorectomy, Tonsillectomy Respiratory: No Currently Using CPAP: No Currently Using BIPAP: No Cardiac: Yes Palpitations Neurological: No Reproductive Disorders: Yes (CHRONIC PELVIC PAIN/DYSMENORRHEA) Female Reproductive Disorders: Menstrual Problems, Ovarian Cyst, Polycystic 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 History: Hysterectomy Genitourinary: Yes Bladder Infection Gastrointestinal: Yes (S/P CHOLECYSTECTOMY) Gastroesophageal Reflux, Esophagitis Musculoskeletal: No Endocrine: No HEENT: Yes (WEARS GLASSES AND CONTACTS) Cancer: No Psychosocial: Yes Anxiety, Depression Integumentary: No Blood Disorders: No Adverse Reaction/Blood Tranf: No Family Medical History DX WITH BRIANNE [place] SPOTTED FEVER 04/2019--MULTIPLE ROUNDS OF ANTIBIOTICS Physical Exam Vital Signs Vital Signs - First Documented 01/12/22 21:51 Temp 39.1 Pulse 123 Resp 18 B/P (MAP) 122/87 (99) Pulse Ox 98 O2 Delivery Room Air Capillary Refill : Less Than 3 Seconds Height, Weight, BMI Height: 5'1.00" Weight: 230lbs. 0oz. [id number]; 46.00 BMI Method:Stated General Appearance: No Apparent Distress, WD/WN, Obese, Other (SITTING - STYLE, TEXTING /PLAYING ON PHONE. DOES NOT APPEAR TO BE IN ANY DISCOMFORT OR DISTRESS. WALKS UPRIGHT AND MOVES WITHOUT DIFFICULTY. PLEASANT AND TALKATIVE. ) HEENT: PERRL/EOMI Neck: Normal Inspection Respiratory: Normal Breath Sounds, No Accessory Muscle Use, No Respiratory Distress Cardiovascular: No Edema, No JVD, No Murmur, Normal Peripheral Pulses, Tachycardia Gastrointestinal: Soft, Tenderness (MILD GENERALIZED TENDERNESS. ), Other (SURGICAL INCISIONS CLEAN/DRY/INTACT. 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 Norm as Tested Skin: Normal Color, Warm/Dry; No Rash Focused Exam Sepsis Stage: Sepsis Possible Source: Unknown Lactate Level 01/12/22 22:06: Lactic Acid Level 2.31*H 01/13/22 00:17: Lactic Acid Level 1.27 Time of Focused Exam: 22:55 Respiratory: Normal Breath Sounds, No Accessory Muscle Use, No Respiratory Distress Cardiovascular: Regular Rate, Rhythm (RATE DOWN TO 90), No Murmur Capillary Refill: Less Than 3 Seconds Skin: normal color, warm/dry Lactic Acid Level Laboratory Tests Test 01/12/22 22:06 01/13/22 00:17 Lactic Acid Level 2.31 MMOL/L (0.50-2.00) *H 1.27 MMOL/L (0.50-2.00) Within 3hrs of presentation: Admin fluids, Admin ABX, Blood cultures prior to ABX's, Focus exam, Lactate level Progress/Results/Core Measures Suspected Sepsis SIRS Temperature: Pulse: 123 Respiratory Rate: 18 Laboratory Tests 01/12/22 22:06: White Blood Count 13.6H Blood Pressure 122 /87 Mean: 99 01/12/22 22:06: Lactic Acid Level 2.31*H 01/13/22 00:17: Lactic Acid Level 1.27 Laboratory Tests 01/12/22 22:06: Creatinine 0.81, Platelet Count 274, Total Bilirubin 0.4 Results/Orders Lab Results Laboratory Tests Test 01/12/22 21:54 01/12/22 22:06 01/12/22 23:13 01/13/22 00:17 Range/Units Urine Color YELLOW Urine Clarity CLEAR Urine pH 6.0 5-9 Urine Specific [place] 1.010 L 1.016-1.022 Urine Protein NEGATIVE NEGATIVE Urine Glucose (UA) NEGATIVE NEGATIVE Urine Ketones NEGATIVE NEGATIVE Urine Nitrite NEGATIVE NEGATIVE Urine Bilirubin NEGATIVE NEGATIVE Urine Urobilinogen 0.2 < = 1.0 MG/DL Urine Leukocyte Esterase TRACE H NEGATIVE Urine RBC (Auto) NEGATIVE NEGATIVE Urine RBC NONE /HPF Urine WBC 0-2 /HPF Urine Squamous Epithelial Cells 0-2 /HPF Urine Crystals NONE /LPF Urine Bacteria NEGATIVE /HPF Urine Casts NONE /LPF Urine Mucus NEGATIVE /LPF Urine Culture Indicated CULTURE PENDING White Blood Count 13.6 H 4.3-11.0 10^3/uL Red Blood Count 4.58 3.80-5.11 10^6/uL Hemoglobin 13.4 11.5-16.0 g/dL Hematocrit 40 35-52 % Mean Corpuscular Volume 87 80-99 fL Mean Corpuscular Hemoglobin 29 25-34 pg Mean Corpuscular Hemoglobin Concent 34 32-36 g/dL Red Cell Distribution Width 12.2 10.0-14.5 % Platelet Count 274 130-400 10^3/uL Mean Platelet Volume 10.3 9.0-12.2 fL Immature Granulocyte % (Auto) 0 % Neutrophils (%) (Auto) 61 42-75 % Lymphocytes (%) (Auto) 28 12-44 % Monocytes (%) (Auto) 5 0-12 % Eosinophils (%) (Auto) 5 0-10 % Basophils (%) (Auto) 0 0-10 % Neutrophils # (Auto) 8.3 H 1.8-7.8 10^3/uL Lymphocytes # (Auto) 3.8 1.0-4.0 10^3/uL Monocytes # (Auto) 0.7 0.0-1.0 10^3/uL Eosinophils # (Auto) 0.7 H 0.0-0.3 10^3/uL Basophils # (Auto) 0.0 0.0-0.1 10^3/uL Immature Granulocyte # (Auto) 0.1 0.0-0.1 10^3/uL Sodium Level 137 135-145 MMOL/L Potassium Level 4.0 3.6-5.0 MMOL/L Chloride Level 103 98-107 MMOL/L Carbon Dioxide Level 20 L 21-32 MMOL/L Anion Gap 14 5-14 MMOL/L Blood Urea Nitrogen 9 7-18 MG/DL Creatinine 0.81 0.60-1.30 MG/DL Estimat Glomerular Filtration Rate 99 BUN/Creatinine Ratio 11 Glucose Level 142 H 70-105 MG/DL Lactic Acid Level 2.31 *H 1.27 0.50-2.00 MMOL/L Calcium Level 8.9 8.5-10.1 MG/DL Corrected Calcium 9.1 8.5-10.1 MG/DL Total Bilirubin 0.4 0.1-1.0 MG/DL Aspartate Amino Transf (AST/SGOT) 20 5-34 U/L Alanine Aminotransferase (ALT/SGPT) 30 0-55 U/L Alkaline Phosphatase 82 40-136 U/L Total Protein 6.6 6.4-8.2 GM/DL Albumin 3.7 3.2-4.5 GM/DL Procalcitonin 0.04 <0.10 NG/ML Influenza Type A (RT-PCR) Not Detected Not Detecte Influenza Type B (RT-PCR) Not Detected Not Detecte SARS-CoV-2 RNA (RT-PCR) Not Detected Not Detecte My Orders Orders - VIKTORIYA YEE DO Cbc With Automated Diff (01/12/22 21:59) Comprehensive Metabolic Panel (01/12/22:59) Blood Culture (01/12/22:59) Urinalysis (01/12/22:59) Urine Culture (01/12/22:59) Chest 1 View, Ap/Pa Only (01/12/22:59) Ed Iv/Invasive Line Start (01/12/22 21:59) Ed Iv/Invasive Line Start (01/12/22 21:59) Vital Signs Adult Sepsis Patie Q15M (01/12/22 21:59) Remove Rings In Anticipation O (01/12/22:59) Lactic Acid Analyzer (01/12/22:59) Procalcitonin (Pct) (01/12/22:59) Ed Iv/Invasive Line Start (01/12/22 21:59) Lactated Ringers (Lr 1000 Ml Iv Solution (01/12/22 22:00) Acetaminophen Tablet (Tylenol Tablet) (01/12/22 22:45) Ibuprofen Tablet (Motrin Tablet) (01/12/22 22:45) Ct Chest/Abdomen/Pelvis W (01/12/22 23:03) Covid 19 Inhouse Test (01/12/22 23:03) Influenza A And B By Pcr (01/12/22 23:03) Isolation Central Supply Req (01/12/22 23:03) Iohexol Injection (Omnipaque 350 Mg/Ml 1 (01/13/22 00:00) Sodium Chloride Flush (Catheter Flush Sy (01/13/22 00:00) Ns (Ivpb) (Sodium Chloride 0.9% Ivpb Bag (01/13/22 00:00) Medications Given in ED Current Medications Medications Dose Ordered Sig/Jossy Route Start Time Stop Time Status Last Admin Dose Admin Acetaminophen 1,000 mg ONCE ONCE PO 01/12/22 22:45 01/12/22 22:46 DC 01/12/22 22:36 1,000 MG Ibuprofen 800 mg ONCE ONCE PO 01/12/22 22:45 01/12/22 22:46 DC 01/12/22 22:36 800 MG Iohexol 150 ml ONCE ONCE IV 01/13/22 00:00 01/13/22 00:01 DC 01/12/22 23:51 100 ML Lactated Ringer's 1,000 ml @ 0 mls/hr Q0M ONCE IV 01/12/22 22:00 01/12/22 22:02 DC 01/12/22 22:25 0 MLS/HR Sodium Chloride 10 ml NEEDED PRN IV 01/13/22 00:00 01/12/22 23:51 10 ML Sodium Chloride 100 ml ONCE ONCE IV 01/13/22 00:00 01/13/22 00:01 DC 01/12/22 23:51 80 ML Vital Signs/I&O 01/12/22 01/12/22 01/12/22 21:51 22:36 22:36 Temp 39.1 39.1 39.1 Pulse 123 Resp 18 B/P (MAP) 122/87 (99) Pulse Ox 98 O2 Delivery Room Air Capillary Refill : Less Than 3 Seconds Blood Pressure Mean: 99 Progress Note : Progress Note SEPSIS PROTOCOL INITIATED GIVEN TYLENOL AND MOTRIN FOR FEVER GIVEN IV FLUIDS AND ANTIBIOTICS NO DETERIORATION IN PT'S CONDITION DURING ER STAY TEMPERATURE AND HEART RATE DOWN AT TIME OF ADMIT PT HAD NO COMPLAINTS DURING ER STAY Diagnostic Imaging Comments CXR--PER RADIOLOGIST REPORT AT 0012 FINDINGS: Heart size and mediastinal contours are unremarkable. There is no identified pneumothorax. There is no large pleural effusion. There is no identified focal airspace consolidation. IMPRESSION: No identified acute cardiopulmonary abnormality. CT CHEST/ABDOMEN/PELVIS--PER [facility] VIA FAX AT [address] CHEST POST HYSTERECTOMY WITH SMALL FLUID COLLECTION IN CUL-DE-SAC 3.5 X 1.8 X 3 CM--NOT PARTICULARLY ENCAPSULATED IN APPEARANCE. Reviewed: Reviewed by Sc Departure Communication (Admissions) 2300--SPOKE WITH DR. MORGAN, HE ADVISES TO OBTAIN CT SCAN TO RULE OUT INTRA- ABDOMINAL SOURCE OF INFECTION. HE IS CURRENTLY NOT ON SITE NURSE. WILL CALL ON SITE NURSE PHYSICIAN WITH RESULTS. 0025--SPOKE WITH DR. ISSA, ON SITE NURSE GOVERNMENT AFFAIRS MANAGER. ACCEPTS PT FOR ADMIT. Impression Primary Impression: Sepsis Additional Impression: Postoperative fever Disposition: ADMITTED INPATIENT Condition: Stable Admissions Decision to Admit Reason: Admit from ER (General) Decision to Admit/Date: Jan 13, 2022 Time/Decision to Admit Time: 00:25 Departure-Patient Inst. Referrals: FERNANDO LIZ DO (PCP/Family) Primary Care Physician VIKTORIYA YEE DO Jan 12, 2022 23:14
[2022-01-12] MEDS: CATHETER FLUSH 10 ML SYR IV PRN (23:51)
[2022-01-13] VITALS (7 sets, daily range): BP systolic 101–131; BP diastolic 58–88
[2022-01-13] MEDS ORDERED: NS 100 ML (IVPB) BAG IV ONE
[2022-01-13] MEDS ORDERED: IOHEXOL 350 MG/ML 150 ML (OMNIPAQUE 350) VIAL IV ONE
[2022-01-13] MEDS ORDERED: PIPERACILLIN SODIUM/TAZOBACTAM 4.5 GM in NS (IVPB) 100 ML IV ONE (00:30)
[2022-01-13] MEDS ORDERED: LACTATED RINGERS 1,000 ML IV ONE (01:25)
[2022-01-13] MEDS: LACTATED RINGERS 1,000 ML IV SCH ×2 (01:33→16:16)
[2022-01-13] MEDS: VANCOMYCIN INJECTION 1,000 MG in NS (IVPB) 250 ML IV SCH ×2 (01:34→02:56)
[2022-01-13] MEDS ORDERED: IBUPROFEN 800 MG (MOTRIN) TAB PO PRN (02:15)
[2022-01-13] MEDS ORDERED: ONDANSETRON 4 MG/2 ML (SDV) Z0FRAN IVP PRN (02:15)
[2022-01-13] MEDS ORDERED: ACETAMINOPHEN 500 MG TAB (TYLENOL) PO PRN (02:15)
[2022-01-13 05:36] LABS: BASOPHILS # (AUTO) 0.1 10^3/uL (0.0-0.1); BASOPHILS % (AUTO) 0 % (0-10); EOSINOPHILS # (AUTO) 0.8 10^3/uL (0.0-0.3); EOSINOPHILS % (AUTO) 6 % (0-10); HEMATOCRIT 39 % (35-52); HEMOGLOBIN 12.7 g/dL (11.5-16.0); LYMPHOCYTES # (AUTO) 3.9 10^3/uL (1.0-4.0); LYMPHOCYTES % (AUTO) 32 % (12-44); MEAN CORPUSCULAR HEMOGLOBIN 29 pg (25-34); MEAN CORPUSCULAR HGB CONC 33 g/dL (32-36); MEAN CORPUSCULAR VOLUME 88 fL (80-99); MEAN PLATELET VOLUME 9.9 fL (9.0-12.2); MONOCYTES # (AUTO) 0.8 10^3/uL (0.0-1.0); MONOCYTES % (AUTO) 7 % (0-12); NEUTROPHILS # (AUTO) 6.6 10^3/uL (1.8-7.8); NEUTROPHILS % (AUTO) 55 % (42-75); PLATELET COUNT 241 10^3/uL (130-400); WHITE BLOOD COUNT 12.2 10^3/uL (4.3-11.0)
[2022-01-13 05:37] LABS: ALBUMIN 3.4 GM/DL (3.2-4.5)
[2022-01-13 05:39] LABS: CALCIUM 8.6 MG/DL (8.5-10.1)
[2022-01-13 05:42] LABS: BILIRUBIN,TOTAL 0.4 MG/DL (0.1-1.0)
[2022-01-13 05:43] LABS: CREATININE SERUM 0.72 MG/DL (0.60-1.30)
--- NOTE | 2022-01-13 07:16 | Diagnostic Imaging Report ---
EXAMINATION: CT chest, abdomen and pelvis with intravenous contrast. TECHNIQUE: Multiple contiguous axial images were obtained through the chest, abdomen and pelvis after the uneventful administration of intravenous contrast. All CT scans use one or more of the following dose optimizing techniques: automated exposure control, MA and/or KvP adjustment based on patient size and exam type or iterative reconstruction. HISTORY: Fever, postop COMPARISON: 11/08/2019 FINDINGS: There is no edema or pneumonia. No pleural effusion. No pneumothorax. No suspicious nodules. There is no axillary or supraclavicular lymphadenopathy. There is no mediastinal lymphadenopathy. Heart size is normal. There are no coronary artery calcifications. No pericardial effusion. Aorta is normal in caliber. The liver is normal without focal lesion. There is no biliary ductal dilation. Gallbladder is absent. Pancreas is normal. Spleen is normal. Adrenal glands are normal. The kidneys are normal. There is no hydronephrosis. Urinary bladder is normal. There has been a recent hysterectomy. There is a 3.5 x 1.8 x 3.0 cm fluid collection in the resection bed. Bowel is normal in caliber without obstruction or inflammation. No free air. No abdominal or pelvic lymphadenopathy. Aorta is normal in caliber without aneurysm. There are no suspicious osseus lesions. IMPRESSION: 1. Recent hysterectomy with a 3.5 x 1.8 x 3.0 cm fluid collection in the resection bed. This may be sterile or infected. 2. No acute abnormality in the chest. Dictated by: Dictated on workstation # [id number]
[2022-01-13] MEDS: PIPERACILLIN SODIUM/TAZOBACTAM 4.5 GM in NS (IVPB) 100 ML IV SCH ×3 (08:58→23:36)
--- NOTE | 2022-01-13 11:33 | History & Physical-OB/GYN ---
History of Present Illness History of Present Illness Reason for visit/HPI CC: 2 day history of Postoperative fever Mary Jo Anderson is a 31 yo POD#5 s/p HAYLIE HECKO due to chronic pain by Dr. Harmon on 01/08/2022, who presented to the ED with c/o a 2 day h/o postoperative fever with associated headaches, body chills and body aches. She denies nausea, vomiting, diarrhea, constipation, new rashes, vaginal bleeding or discharge. She states that her incision sites have not appeared erythematous and have been without any drainage. She presented to the ED on POD#4 with complaints and was found to have an admission temp of 102.4 F. Appropriate sepsis workup was completed and was remarkable for elevated lactic acid of 2.[address] scan demonstrating evidence of small fluid collection in the pelvis measuring 3.5 x 1.8 x 3.0 cm in the resection bed. CXR was negative and CT was negative for DVT, pneumonia or other obvious sources of infection or fever. Urine and blood cultures were collected; however, UA was negative. She was admitted for observation and started on broad spectrum antibiotics (Zosyn and Vancomycin). She was seen this morning by myself and has seen improvement in her fevers, body chills and headache. Date of Admission Jan 13, 2022 at 00:25 Date Seen by a Provider: Jan 13, 2022 Time Seen by a Provider: 11:24 I consulted on this patient on 01/13/22 11:24 Attending Physician Aleksandr Bray MD Admitting Physician Sree Vargas V DO Consult Allergies and Home Medications Allergies Coded Allergies: No Known Drug Allergies (Unverified , 07/21/17) Patient Home Medication List Home Medication List Reviewed: Yes Citalopram Hydrobromide (Citalopram HBr) 20 Mg Tablet, 20 MG PO DAILY, (Reported) Entered as Reported by: REENA ROGER on 10/19/20 1331 Last Action: Last Taken Edited Docusate Sodium (Docusate Sodium) 100 Mg Capsule, 100 MG PO BID PRN for CONSTIPATION-1ST LINE Prescribed by: FRANKLYN HARMON on 01/08/22 0834 Last Action: Last Taken Edited Hydrocodone Bit/Acetaminophen (HYDROcodone/APAP 7.5/325 TAB) 1 Ea Tablet, 1-2 EA PO Q6HR PRN for PAIN-MODERATE (5-7) Prescribed by: FRANKLYN HARMON on 01/08/22 0835 Last Action: Last Taken Edited Ibuprofen (Ibu) 600 Mg Tablet, 600 MG PO Q6HR Prescribed by: FRANKLYN HARMON on 01/08/22 0834 Last Action: Last Taken Edited Levothyroxine Sodium (Levothyroxine) 25 Mcg Capsule, 25 MCG PO DAILY, (Reported) Entered as Reported by: KAREN FARIA on 12/29/21 1340 Last Action: Last Taken Edited Loratadine (Loratadine) 10 Mg Tablet, 10 MG PO DAILY, (Reported) Entered as Reported by: MALDONADO MARTIN on 01/08/22 0959 Last Action: Last Taken Edited Multivitamin (Multivitamin) 1 Each Tablet, 1 EACH PO DAILY, (Reported) Entered as Reported by: REENA ROGER on 10/19/20 1331 Last Action: Last Taken Edited Propranolol HCl (Propranolol HCl) 10 Mg Tablet, 5 MG PO BID PRN for PRN, (Reported) Entered as Reported by: KAREN FARIA on 12/29/21 134 Last Action: Last Taken Edited Propranolol HCl (Propranolol HCl) 10 Mg Tablet, 10 MG PO HS, (Reported) Entered as Reported by: MALDONADO MARTIN on 01/08/22 0957 Last Action: Last Taken Edited Simethicone (Mi-Acid) 80 Mg Tab.chew, 40 MG PO TID PRN for INDIGESTION 2ND LINE Prescribed by: FRANKLYN HARMON on 01/08/22833 Last Action: Last Taken Edited Discontinued Medications Acetaminophen (Acetaminophen) 500 Mg Tablet, 1,000 MG PO Q8H PRN for PAIN-MILD (1-4) Prescribed by: DIAMANTE WILSON on 10/25/20920 Ibuprofen (Ibuprofen) 800 Mg Tablet, 600 MG PO Q6HR Prescribed by: DIAMANTE WILSON on 10/25/20920 Past Dxfrtvv-Dpnywy-Avpeoi Hx Patient Social History Marrital Status: Drug of Choice: THC IN PAST 2nd Hand Smoke Exposure: No Recent Hopitalizations: No Have you traveled recently?: No Alcohol Use?: Yes Pt feels they are or have been: No Immunizations Up To Date Tetanus Booster (TDap): Less than 5yrs Pediatric: No Date of Influenza Vaccine: Jul 24, 2021 Seasonal Allergies Seasonal Allergies: Yes Surgeries Yes (WISDOM TEETH, D&C) Adenoidectomy, Gallbladder, Hysterectomy, Oophorectomy, Tonsillectomy Respiratory No Currently Using CPAP: No Currently Using BIPAP: No Cardiovascular Yes Palpitations Neurological No Reproductive System Hx Reproductive Disorders: Yes (CHRONIC PELVIC PAIN/DYSMENORRHEA) Female Reproductive Disorders: Menstrual Problems, Ovarian Cyst, Polycystic Ovarian Dis 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 Genitourinary Yes Bladder Infection Gastrointestinal Yes (S/P CHOLECYSTECTOMY) Gastroesophageal Reflux, Esophagitis Musculoskeletal No Endocrine History of Endocrine Disorders: No HEENT History of HEENT Disorders: Yes (WEARS GLASSES AND CONTACTS) Cancer No Psychosocial History of Psychiatric Problem: Yes Behavioral Health Disorders: Anxiety, Depression Integumentary History of Skin or Integumenta: No Blood Transfusions History of Blood Disorders: No Adverse Reaction to a Blood Tr: No Family Medical History Other Significan Family Hx: DX WITH BRIANNE [place] SPOTTED FEVER 04/2019--MULTIPLE ROUNDS OF ANTIBIOTICS Review of Systems Constitutional: no symptoms reported Physical Exam Physical Exam Vital Signs Vital Signs Date Time Temp Pulse Resp B/P (MAP) Pulse Ox O2 Delivery O2 Flow Rate FiO2 01/13/22 04:55 36.2 84 18 101/58 (72) 98 Room Air 01/13/22 01:10 36.8 91 18 124/88 (100) 97 Room Air 01/13/22 00:58 37.9 84 12 115/70 98 Room Air 01/12/22 22:36 39.1 01/12/22 22:36 39.1 01/12/22 21:51 39.1 123 18 122/87 (99) 98 Room Air I & O 01/13/22 07:00 Intake Total 1600 ml Balance 1600 ml Capillary Refill : Less Than 3 Seconds Labs Laboratory Tests 01/12/22 21:54: Urine Color YELLOW, Urine Clarity CLEAR, Urine pH 6.0, Urine Specific [place] 1.010L, Urine Protein NEGATIVE, Urine Glucose (UA) NEGATIVE, Urine Ketones NEGATIVE, Urine Nitrite NEGATIVE, Urine Bilirubin NEGATIVE, Urine Urobilinogen 0.2, Urine Leukocyte Esterase TRACEH, Urine RBC (Auto) NEGATIVE, Urine RBC NONE, Urine WBC 0-2, Urine Squamous Epithelial Cells 0-2, Urine Crystals NONE, Urine Bacteria NEGATIVE, Urine Casts NONE, Urine Mucus NEGATIVE, Urine Culture Indicated CULTURE PENDING 01/12/22 22:06: White Blood Count 13.6H, Red Blood Count 4.58, Hemoglobin 13.4, Hematocrit 40, Mean Corpuscular Volume 87, Mean Corpuscular Hemoglobin 29, Mean Corpuscular Hemoglobin Concent 34, Red Cell Distribution Width 12.2, Platelet Count 274, Mean Platelet Volume 10.3, Immature Granulocyte % (Auto) 0, Neutrophils (%) (Auto) 61, Lymphocytes (%) (Auto) 28, Monocytes (%) (Auto) 5, Eosinophils (%) (Auto) 5, Basophils (%) (Auto) 0, Neutrophils # (Auto) 8.3H, Lymphocytes # (Auto) 3.8, Monocytes # (Auto) 0.7, Eosinophils # (Auto) 0.7H, Basophils # (Auto) 0.0, Immature Granulocyte # (Auto) 0.1, Sodium Level 137, Potassium Level 4.0, Chloride Level 103, Carbon Dioxide Level 20L, Anion Gap 14, Blood Urea Nitrogen 9, Creatinine 0.81, Estimat Glomerular Filtration Rate 99, BUN/Creatinine Ratio 11, Glucose Level 142H, Lactic Acid Level 2.31*H, Calcium Level 8.9, Corrected Calcium 9.1, Total Bilirubin 0.4, Aspartate Amino Transf (AST/SGOT) 20, Alanine Aminotransferase (ALT/SGPT) 30, Alkaline Phosphatase 82, Total Protein 6.6, Albumin 3.7, Procalcitonin 0.04 01/12/22 23:13: Influenza Type A (RT-PCR) Not Detected, Influenza Type B (RT-PCR) Not Detected, SARS-CoV-2 RNA (RT-PCR) Not Detected 01/13/22 00:17: Lactic Acid Level 1.27 01/13/22 05:18: White Blood Count 12.2H, Red Blood Count 4.39, Hemoglobin 12.7, Hematocrit 39, Mean Corpuscular Volume 88, Mean Corpuscular Hemoglobin 29, Mean Corpuscular Hemoglobin Concent 33, Red Cell Distribution Width 12.3, Platelet Count 241, Mean Platelet Volume 9.9, Immature Granulocyte % (Auto) 1, Neutrophils (%) (Auto) 55, Lymphocytes (%) (Auto) 32, Monocytes (%) (Auto) 7, Eosinophils (%) (Auto) 6, Basophils (%) (Auto) 0, Neutrophils # (Auto) 6.6, Lymphocytes # (Auto) 3.9, Monocytes # (Auto) 0.8, Eosinophils # (Auto) 0.8H, Basophils # (Auto) 0.1, Immature Granulocyte # (Auto) 0.1, Sodium Level 138, Potassium Level 4.0, Chloride Level 107, Carbon Dioxide Level 19L, Anion Gap 12, Blood Urea Nitrogen 10, Creatinine 0.72, Estimat Glomerular Filtration Rate 115, BUN/Creatinine Ratio 14, Glucose Level 103, Calcium Level 8.6, Corrected Calcium 9.1, Total Bilirubin 0.4, Aspartate Amino Transf (AST/SGOT) 17, Alanine Aminotransferase (ALT/SGPT) 28, Alkaline Phosphatase 74, Total Protein 6.0L, Albumin 3.4 Radiology Studies [facility]. [place], [place] NAME: RACHEL MATUTE [facility] REC#: [id number] PT STATUS: REG CLI : 07/28/1987 PHYSICIAN: LINN STERLING MD ADMIT DATE: 07/17/21/RAD Signed Date of Exam:07/17/21 US OB SINGLE FETUS<14 [id number] PROCEDURE: US OB SINGLE FETUS <14 WKS. TECHNIQUE: Multiple Real-time grayscale images were obtained over the gravid uterus in various projections. INDICATION: dating. FINDINGS: There is a single live intrauterine of approximately 12 weeks 5 days gestation. heart rate was recorded at 156 BPM. The placenta is developing posteriorly. No reta-gestational sac hemorrhage is seen. The adnexa are unremarkable. IMPRESSION: Single live IUP of 12 weeks 5 days gestation with an estimated date of confinement sonographically of 01/24/2022. Dictated by: Dictated on workstation # [id number] Dict: 07/17/21 1533 Trans: 07/18/21 1207 [id number] Interpreted by: LYNN YATES MD Electronically signed by: LYNN YATES MD 07/18/21 1204 General Appearance: No Apparent Distress Respiratory: Chest Non Tender, Lungs Clear, Normal Breath Sounds, No Accessory Muscle Use, No Respiratory Distress Cardiovascular: Regular Rate, Rhythm, No Edema, No Gallop, No JVD, No Murmur Abdominal: normal bowel sounds, non tender, soft (3 trocar incisions are clean, dry and intact with skin glue. No purulent drainage, erythema or induration noted. ) Assessment/Plan Assessment and Plan Mary Jo Anderson is a 31yo POD#5 s/p RA HAYLIE BAIRESO, admitted due to concerns for fever of unknown origin. Differential diagnosis includes the following: Surgical site infection, UTI, Bacteremia, Vaginal cuff dehiscence. DVT, Pneumonia ruled out at this time. # Fever of Unknown Origin: Urine and blood cultures pending. Will follow-up results and transition to oral antibiotics if warranted. - Will continue broad spectrum antibiotics. If urine/blood cx are negative, consider trial of discontinuing antibiotics and assessing improvement for 24 hours with plans for discharge if she has no fevers. - s/p IV hydration overnight. Will discontinue today and allow for oral hydration. - Will monitor vitals. # Anxiety/Depression: Home Citalopram and propranolol ordered. # Diet: Regular diet ordered. Zofran, colace and pepcid ordered. # DVT ppx: SCDs in bed. Ambulation encouraged. # Dispo: Pending improvement and blood/urine cx results. Admission Diagnosis Postoperative fever Admission Status: Inpatient Order (span 2 midnights) Reason for Inpatient Admission: Patient meets sepsis criteria ALEKSANDR BRAY MD Jan 13, 2022 11:33
[2022-01-13] MEDS ORDERED: LEVOTHYROXINE 25 MCG (LEVOTHROID) TAB PO SCH (12:00)
[2022-01-13] MEDS ORDERED: PATIENT MAY USE OWN MEDS, ALL MC SCH (12:00)
[2022-01-13] MEDS: LEVOTHYROXINE 25 MCG (LEVOTHROID) TAB PO SCH (12:20)
[2022-01-13] MEDS: VANCOMYCIN 1250 MG/NS 250 ML IVPB IV SCH ×2 (14:21)
[2022-01-13] MEDS: DOCUSATE SODIUM 100 MG (COLACE) CAP PO SCH (20:04)
[2022-01-13] MEDS ORDERED: PROPRANOLOL 20 MG (INDERAL) TABLET PO SCH (21:00)
[2022-01-13] MEDS ORDERED: VANCOMYCIN INJECTION 1,000 MG in NS (IVPB) 250 ML IV ONE (21:00)
[2022-01-13] MEDS: FAMOTIDINE 20 MG (PEPCID) TABLET PO SCH (22:10)
[2022-01-13] MEDS: PROPRANOLOL 10 MG TABLET PO SCH (22:11)
[2022-01-14 03:40] VITALS: BP 110/55
[2022-01-14] MEDS: LACTATED RINGERS 1,000 ML IV SCH (03:40)
[2022-01-14] MEDS: VANCOMYCIN 1250 MG/NS 250 ML IVPB IV SCH ×4 (03:40→14:50)
[2022-01-14 04:38] LABS: BASOPHILS % (AUTO) 0 % (0-10); EOSINOPHILS # (AUTO) 0.8 10^3/uL (0.0-0.3); EOSINOPHILS % (AUTO) 7 % (0-10); HEMATOCRIT 37 % (35-52); HEMOGLOBIN 12.2 g/dL (11.5-16.0); LYMPHOCYTES # (AUTO) 3.3 10^3/uL (1.0-4.0); LYMPHOCYTES % (AUTO) 29 % (12-44); MEAN CORPUSCULAR HEMOGLOBIN 29 pg (25-34); MEAN CORPUSCULAR HGB CONC 33 g/dL (32-36); MEAN CORPUSCULAR VOLUME 88 fL (80-99); MEAN PLATELET VOLUME 10.3 fL (9.0-12.2); MONOCYTES # (AUTO) 0.9 10^3/uL (0.0-1.0); MONOCYTES % (AUTO) 8 % (0-12); NEUTROPHILS # (AUTO) 6.6 10^3/uL (1.8-7.8); NEUTROPHILS % (AUTO) 56 % (42-75); PLATELET COUNT 221 10^3/uL (130-400); WHITE BLOOD COUNT 11.7 10^3/uL (4.3-11.0)
[2022-01-14] MEDS: PIPERACILLIN SODIUM/TAZOBACTAM 4.5 GM in NS (IVPB) 100 ML IV SCH ×2 (08:06→16:19)
[2022-01-14] MEDS: LEVOTHYROXINE 25 MCG (LEVOTHROID) TAB PO SCH (08:06)
[2022-01-14 09:06] VITALS: BP 116/56
[2022-01-14] MEDS: DOCUSATE SODIUM 100 MG (COLACE) CAP PO SCH (09:08)
[2022-01-14] MEDS: FAMOTIDINE 20 MG (PEPCID) TABLET PO SCH ×2 (09:08→21:16)
--- NOTE | 2022-01-14 09:19 | Progress Note ---
Standard Progress Note Progress Notes/Assess & Plan Date Seen by a Provider: Jan 14, 2022 Time Seen by a Provider: 09:00 Progress/Assessment & Plan S: Patient is doing well with no complaints this AM. Ambulating well, no abdominal pain. Passing flatus with normal BM. Urinating with no issues. Normal urine output. Denies fever, chills, n/v, body aches or chills, nausea or vomiting, diarrhea or constipation. O: VS - Last 72 Hours, by Label 01/12/22 01/12/22 01/12/22 01/13/22 21:51 22:36 22:36 00:58 Temp 39.1 39.1 39.1 37.9 Pulse 123 84 Resp 18 12 B/P (MAP) 122/87 (99) 115/70 Pulse Ox 98 98 O2 Delivery Room Air Room Air 01/13/22 01/13/22 01/13/22 01/13/22 01:10 04:55 09:00 12:20 Temp 36.8 36.2 36.4 36.6 Pulse 91 84 62 68 Resp 18 18 18 18 B/P (MAP) 124/88 (100) 101/58 (72) 121/68 (85) 131/80 (97) Pulse Ox 97 98 97 99 O2 Delivery Room Air Room Air Room Air Room Air 01/13/22 01/13/22 01/13/22 01/13/22 15:32 16:16 19:30 23:36 Temp 37.4 37.3 36.7 37.0 Pulse 68 82 71 Resp 18 18 18 B/P (MAP) 131/80 (97) 129/73 (91) 116/59 (78) Pulse Ox 99 97 98 O2 Delivery Room Air Room Air Room Air 01/14/22 03:40 Temp 36.8 Pulse 75 Resp 18 B/P (MAP) 110/55 (73) Pulse Ox 99 O2 Delivery Room Air Laboratory Tests Test 01/14/22 04:08 Range/Units White Blood Count 11.7 H 4.3-11.0 10^3/uL Red Blood Count 4.18 3.80-5.11 10^6/uL Hemoglobin 12.2 11.5-16.0 g/dL Hematocrit 37 35-52 % Mean Corpuscular Volume 88 80-99 fL Mean Corpuscular Hemoglobin 29 25-34 pg Mean Corpuscular Hemoglobin Concent 33 32-36 g/dL Red Cell Distribution Width 12.5 10.0-14.5 % Platelet Count 221 130-400 10^3/uL Mean Platelet Volume 10.3 9.0-12.2 fL Immature Granulocyte % (Auto) 0 % Neutrophils (%) (Auto) 56 42-75 % Lymphocytes (%) (Auto) 29 12-44 % Monocytes (%) (Auto) 8 0-12 % Eosinophils (%) (Auto) 7 0-10 % Basophils (%) (Auto) 0 0-10 % Neutrophils # (Auto) 6.6 1.8-7.8 10^3/uL Lymphocytes # (Auto) 3.3 1.0-4.0 10^3/uL Monocytes # (Auto) 0.9 0.0-1.0 10^3/uL Eosinophils # (Auto) 0.8 H 0.0-0.3 10^3/uL Basophils # (Auto) 0.0 0.0-0.1 10^3/uL Immature Granulocyte # (Auto) 0.0 0.0-0.1 10^3/uL A/P: Mary Jo Anderson is a 31yo POD#6 s/p RA PACO BAIRES, admitted due to concerns for fever of unknown origin. Differential diagnosis includes the following: Surgical site infection, UTI, Bacteremia, Vaginal cuff dehiscence. DVT, Pneumonia ruled out at this time. # Fever of Unknown Origin: Urine and blood cultures pending. Will follow-up results and transition to oral antibiotics if warranted. - Will continue broad spectrum antibiotics. If urine/blood cx are negative, consider trial of discontinuing antibiotics and assessing improvement for 24 hours with plans for discharge if she has no fevers. - Will monitor vitals. # Anxiety/Depression: Home Citalopram and propranolol ordered. # Diet: Regular diet ordered. Zofran, colace and pepcid ordered. # DVT ppx: SCDs in bed. Ambulation encouraged. # Dispo: Pending improvement and blood/urine cx results. Final Diagnosis Postoperative fever Fever of Unknown Origin Focused Exam Lactate Level 01/12/22 22:06: Lactic Acid Level 2.31*H 01/13/22 00:17: Lactic Acid Level 1.27 Time of Focused Exam: 22:55 ALEKSANDR ISSA MD Jan 14, 2022 09:19
[2022-01-14 12:37] VITALS: BP 118/61
[2022-01-14] MEDS ORDERED: TROUGH ORDER-PHARMACY XX NR (13:00)
[2022-01-14 16:21] VITALS: BP 119/62
[2022-01-14 20:17] VITALS: BP 124/76
[2022-01-14] MEDS: PROPRANOLOL 10 MG TABLET PO SCH (21:02)
[2022-01-15] VITALS (7 sets, daily range): BP systolic 116–135; BP diastolic 59–79
[2022-01-15] MEDS: PIPERACILLIN SODIUM/TAZOBACTAM 4.5 GM in NS (IVPB) 100 ML IV SCH ×3 (01:16→19:00)
[2022-01-15] MEDS: VANCOMYCIN 1250 MG/NS 250 ML IVPB IV SCH ×4 (06:00→17:27)
[2022-01-15 06:13] LABS: BASOPHILS # (AUTO) 0.1 10^3/uL (0.0-0.1); BASOPHILS % (AUTO) 0 % (0-10); EOSINOPHILS # (AUTO) 0.8 10^3/uL (0.0-0.3); EOSINOPHILS % (AUTO) 5 % (0-10); HEMATOCRIT 38 % (35-52); HEMOGLOBIN 12.6 g/dL (11.5-16.0); LYMPHOCYTES # (AUTO) 3.3 10^3/uL (1.0-4.0); LYMPHOCYTES % (AUTO) 23 % (12-44); MEAN CORPUSCULAR HEMOGLOBIN 29 pg (25-34); MEAN CORPUSCULAR HGB CONC 33 g/dL (32-36); MEAN CORPUSCULAR VOLUME 88 fL (80-99); MEAN PLATELET VOLUME 10.1 fL (9.0-12.2); MONOCYTES # (AUTO) 1.2 10^3/uL (0.0-1.0); MONOCYTES % (AUTO) 8 % (0-12); NEUTROPHILS # (AUTO) 9.1 10^3/uL (1.8-7.8); NEUTROPHILS % (AUTO) 63 % (42-75); PLATELET COUNT 223 10^3/uL (130-400); WHITE BLOOD COUNT 14.4 10^3/uL (4.3-11.0)
[2022-01-15 06:37] LABS: BASOPHILS % (MANUAL) 1 %; EOSINOPHILS % (MANUAL) 3 %; LYMPHOCYTES % (MANUAL) 23 %; MONOCYTES % (MANUAL) 8 %; NEUTROPHILS % (MANUAL) 65 %; RBC MORPH NORMAL
[2022-01-15] MEDS: DOCUSATE SODIUM 100 MG (COLACE) CAP PO SCH ×3 (09:30→21:00)
[2022-01-15] MEDS: LEVOTHYROXINE 25 MCG (LEVOTHROID) TAB PO SCH (09:33)
[2022-01-15] MEDS: FAMOTIDINE 20 MG (PEPCID) TABLET PO SCH ×2 (09:34→21:24)
[2022-01-15] MEDS: CATHETER FLUSH 10 ML SYR IV PRN (09:40)
[2022-01-15] MEDS: LACTATED RINGERS 1,000 ML IV SCH (14:00)
--- NOTE | 2022-01-15 14:08 | Progress Note ---
Standard Progress Note Progress Notes/Assess & Plan Date Seen by a Provider: Jan 15, 2022 Time Seen by a Provider: 13:57 Progress/Assessment & Plan S: Patient continues to do well with no complaints this AM. Ambulating well, no abdominal pain. Passing flatus with normal BM. Urinating with no issues. Normal urine output. Denies fever, chills, n/v, body aches or chills, nausea or vomiting, Of note, I was notified that the patient DID have 4 episodes of diarrhea in the last 48 hours. C.dif sample was sent. O: VS - Last 72 Hours, by Label 01/12/22 01/12/22 01/12/22 01/13/22 21:51 22:36 22:36 00:58 Temp 39.1 39.1 39.1 37.9 Pulse 123 84 Resp 18 12 B/P (MAP) 122/87 (99) 115/70 Pulse Ox 98 98 O2 Delivery Room Air Room Air 01/13/22 01/13/22 01/13/22 01/13/22 01:10 04:55 09:00 12:20 Temp 36.8 36.2 36.4 36.6 Pulse 91 84 62 68 Resp 18 18 18 18 B/P (MAP) 124/88 (100) 101/58 (72) 121/68 (85) 131/80 (97) Pulse Ox 97 98 97 99 O2 Delivery Room Air Room Air Room Air Room Air 01/13/22 01/13/22 01/13/22 01/13/22 15:32 16:16 19:30 23:36 Temp 37.4 37.3 36.7 37.0 Pulse 68 82 71 Resp 18 18 18 B/P (MAP) 131/80 (97) 129/73 (91) 116/59 (78) Pulse Ox 99 97 98 O2 Delivery Room Air Room Air Room Air 01/14/22 01/14/22 01/14/22 01/14/22 03:40 09:06 12:37 16:21 Temp 36.8 36.6 36.8 37.3 Pulse 75 68 86 77 Resp 18 18 18 18 B/P (MAP) 110/55 (73) 116/56 (76) 118/61 (80) 119/62 (81) Pulse Ox 99 97 98 99 O2 Delivery Room Air Room Air Room Air Room Air 01/14/22 01/15/22 01/15/22 01/15/22 20:17 01:20 03:21 06:02 Temp 37.0 36.5 37.0 Pulse 89 81 70 Resp 18 16 16 B/P (MAP) 124/76 (92) 123/59 (80) 116/60 (78) Pulse Ox 97 99 98 O2 Delivery Room Air Room Air Room Air 01/15/22 01/15/22 09:26 12:23 Temp 36.8 36.8 Pulse 83 78 Resp 16 16 B/P (MAP) 118/64 (82) 116/65 (82) Pulse Ox 98 98 O2 Delivery Room Air Room Air VS - Last 72 Hours, by Label 01/12/22 01/12/22 01/12/22 01/13/22 21:51 22:36 22:36 00:58 Temp 39.1 39.1 39.1 37.9 Pulse 123 84 Resp 18 12 B/P (MAP) 122/87 (99) 115/70 Pulse Ox 98 98 O2 Delivery Room Air Room Air 01/13/22 /01/13/22 01/13/22 01:10 04:55 09:00 12:20 Temp 36.8 36.2 36.4 36.6 Pulse 91 84 62 68 Resp 18 18 18 18 B/P (MAP) 124/88 (100) 101/58 (72) 121/68 (85) 131/80 (97) Pulse Ox 97 98 97 99 O2 Delivery Room Air Room Air Room Air Room Air 01/13/22 01/13/22 01/13/22 01/13/22 15:32 16:16 19:30 23:36 Temp 37.4 37.3 36.7 37.0 Pulse 68 82 71 Resp 18 18 18 B/P (MAP) 131/80 (97) 129/73 (91) 116/59 (78) Pulse Ox 99 97 98 O2 Delivery Room Air Room Air Room Air 01/14/22 03:40 Temp 36.8 Pulse 75 Resp 18 B/P (MAP) 110/55 (73) Pulse Ox 99 O2 Delivery Room Air Laboratory Tests Laboratory Tests Test 01/15/22 05:56 Range/Units White Blood Count 14.4 H 4.3-11.0 10^3/uL Red Blood Count 4.30 3.80-5.11 10^6/uL Hemoglobin 12.6 11.5-16.0 g/dL Hematocrit 38 35-52 % Mean Corpuscular Volume 88 80-99 fL Mean Corpuscular Hemoglobin 29 25-34 pg Mean Corpuscular Hemoglobin Concent 33 32-36 g/dL Red Cell Distribution Width 12.4 10.0-14.5 % Platelet Count 223 130-400 10^3/uL Mean Platelet Volume 10.1 9.0-12.2 fL Immature Granulocyte % (Auto) 1 % Neutrophils (%) (Auto) 63 42-75 % Lymphocytes (%) (Auto) 23 12-44 % Monocytes (%) (Auto) 8 0-12 % Eosinophils (%) (Auto) 5 0-10 % Basophils (%) (Auto) 0 0-10 % Neutrophils # (Auto) 9.1 H 1.8-7.8 10^3/uL Lymphocytes # (Auto) 3.3 1.0-4.0 10^3/uL Monocytes # (Auto) 1.2 H 0.0-1.0 10^3/uL Eosinophils # (Auto) 0.8 H 0.0-0.3 10^3/uL Basophils # (Auto) 0.1 0.0-0.1 10^3/uL Immature Granulocyte # (Auto) 0.1 0.0-0.1 10^3/uL Neutrophils % (Manual) 65 % Lymphocytes % (Manual) 23 % Monocytes % (Manual) 8 % Eosinophils % (Manual) 3 % Basophils % (Manual) 1 % Blood Morphology Comment NORMAL Test 01/14/22 04:08 Range/Units White Blood Count 11.7 H 4.3-11.0 10^3/uL Red Blood Count 4.18 3.80-5.11 10^6/uL Hemoglobin 12.2 11.5-16.0 g/dL Hematocrit 37 35-52 % Mean Corpuscular Volume 88 80-99 fL Mean Corpuscular Hemoglobin 29 25-34 pg Mean Corpuscular Hemoglobin Concent 33 32-36 g/dL Red Cell Distribution Width 12.5 10.0-14.5 % Platelet Count 221 130-400 10^3/uL Mean Platelet Volume 10.3 9.0-12.2 fL Immature Granulocyte % (Auto) 0 % Neutrophils (%) (Auto) 56 42-75 % Lymphocytes (%) (Auto) 29 12-44 % Monocytes (%) (Auto) 8 0-12 % Eosinophils (%) (Auto) 7 0-10 % Basophils (%) (Auto) 0 0-10 % Neutrophils # (Auto) 6.6 1.8-7.8 10^3/uL Lymphocytes # (Auto) 3.3 1.0-4.0 10^3/uL Monocytes # (Auto) 0.9 0.0-1.0 10^3/uL Eosinophils # (Auto) 0.8 H 0.0-0.3 10^3/uL Basophils # (Auto) 0.0 0.0-0.1 10^3/uL Immature Granulocyte # (Auto) 0.0 0.0-0.1 10^3/uL A/P: Mary Jo Anderson is a 31yo POD#7 s/p RA MADHU, BSO, admitted due to concerns for fever of unknown origin. Differential diagnosis includes the following: Surgical site infection, UTI, Bacteremia, Vaginal cuff dehiscence. DVT, Pneumonia ruled out at this time. # Fever of Unknown Origin: Urine culture is negative, Blood cultures pending with prelim negative, Stool sample collected and negative for C. dif. CXR is negative for pneumonia or PE. CT is negative for DVT, but did not a 3.0 cm fluid collection in the pelvis. - Will continue IV broad spectrum antibiotics with plans to transition to oral broad spectrum antibiotics - Augmentin 875/125mg q12 hrs for 5 days, based on Uptodate. - Will monitor vitals. # Anxiety/Depression: Home Citalopram and propranolol ordered. # Diet: Regular diet ordered. Zofran, colace and pepcid ordered. # DVT ppx: SCDs in bed. Ambulation encouraged. # Dispo: Pending improvement. Final Diagnosis Postoperative fever Focused Exam Lactate Level 01/12/22 22:06: Lactic Acid Level 2.31*H 01/13/22 00:17: Lactic Acid Level 1.27 Time of Focused Exam: 22:55 ALEKSANDR ISSA MD Jan 15, 2022 14:08
[2022-01-15] MEDS: PROPRANOLOL 10 MG TABLET PO SCH (21:20)
[2022-01-16 03:15] VITALS: BP 111/52
[2022-01-16 08:30] VITALS: BP 108/57
[2022-01-16] MEDS: FAMOTIDINE 20 MG (PEPCID) TABLET PO SCH ×2 (08:41→21:49)
[2022-01-16] MEDS: AUGMENTIN 875 MG TAB (AMOXICILLIN/CLAVULANATE) PO SCH ×2 (08:41→18:39)
[2022-01-16] MEDS: LEVOTHYROXINE 25 MCG (LEVOTHROID) TAB PO SCH (08:42)
[2022-01-16] MEDS: DOCUSATE SODIUM 100 MG (COLACE) CAP PO SCH ×2 (08:43→21:50)
--- NOTE | 2022-01-16 08:46 | Progress Note ---
Standard Progress Note Progress Notes/Assess & Plan Date Seen by a Provider: Jan 16, 2022 Time Seen by a Provider: 08:42 Progress/Assessment & Plan S: Patient continues to do well with no complaints this AM. Ambulating well, no abdominal pain. Passing flatus with normal BM. Urinating with no issues. Normal urine output. Denies fever, chills, n/v, body aches or chills, nausea or vomiting, O: VS - Last 72 Hours, by Label 01/13/22 01/13/22 01/13/22 01/13/22 09:00 12:20 15:32 16:16 Temp 36.4 36.6 37.4 37.3 Pulse 62 68 68 Resp 18 18 18 B/P (MAP) 121/68 (85) 131/80 (97) 131/80 (97) Pulse Ox 97 99 99 O2 Delivery Room Air Room Air Room Air 01/13/22 01/13/22 01/14/22 01/14/22 19:30 23:36 03:40 09:06 Temp 36.7 37.0 36.8 36.6 Pulse 82 71 75 68 Resp 18 18 18 18 B/P (MAP) 129/73 (91) 116/59 (78) 110/55 (73) 116/56 (76) Pulse Ox 97 98 99 97 O2 Delivery Room Air Room Air Room Air Room Air 01/14/22 01/14/22 01/14/22 01/15/22 12:37 16:21 20:17 01:20 Temp 36.8 37.3 37.0 36.5 Pulse 86 77 89 81 Resp 18 18 18 16 B/P (MAP) 118/61 (80) 119/62 (81) 124/76 (92) 123/59 (80) Pulse Ox 98 99 97 99 O2 Delivery Room Air Room Air Room Air Room Air 01/15/22 01/15/22 01/15/22 01/15/22 03:21 06:02 09:26 12:23 Temp 37.0 36.8 36.8 Pulse 70 83 78 Resp 16 16 16 B/P (MAP) 116/60 (78) 118/64 (82) 116/65 (82) Pulse Ox 98 98 98 O2 Delivery Room Air Room Air Room Air 01/15/22 01/15/22 01/16/22 16:30 21:18 03:15 Temp 36.8 37.4 36.3 Pulse 80 89 82 Resp 16 18 18 B/P (MAP) 119/73 (88) 129/66 (87) 111/52 (71) Pulse Ox 98 97 99 O2 Delivery Room Air Room Air Room Air Labs: AM labs are pending. A/P: Mary Jo Anderson is a 31yo POD#8 s/p RA DEQUAN BSO, admitted due to concerns for fever of unknown origin. High clinical suspicion that her fever is due to a small pelvic abscess. # Fever of Unknown Origin: Likely 2/2 small pelvic abscess. Urine culture is negative, Blood cultures pending with prelim negative as of day#3. Stool sample collected and negative for C. dif. CXR is negative for pneumonia or PE. CT is negative for DVT, but did not a 3.0 cm fluid collection in the pelvis. - IV broad spectrum antibiotics were transitioned to oral antibiotics today: Augmentin 875/125mg q12 hrs for 5 days, based on Uptodate. - Will monitor vitals. - If patient remains afebrile for 24 hours following starting oral antibiotics, will discharge home with plans for close follow-up with Dr. Harmon in 1 week. # Anxiety/Depression: Home Citalopram and propranolol ordered. # Diet: Regular diet ordered. Zofran, colace and pepcid ordered. # DVT ppx: SCDs in bed. Ambulation encouraged. # Dispo: Pending improvement. Final Diagnosis Postoperative fever, likely due to small pelvic abscess Focused Exam Time of Focused Exam: 22:55 ALEKSANDR ISSA MD Jan 16, 2022 08:46
[2022-01-16] MEDS ORDERED: AMOX1TAB12 PO (08:48)
[2022-01-16 09:44] LABS: BASOPHILS # (AUTO) 0.1 10^3/uL (0.0-0.1); BASOPHILS % (AUTO) 0 % (0-10); EOSINOPHILS # (AUTO) 0.6 10^3/uL (0.0-0.3); EOSINOPHILS % (AUTO) 4 % (0-10); HEMATOCRIT 40 % (35-52); LYMPHOCYTES % (AUTO) 21 % (12-44); MEAN CORPUSCULAR HEMOGLOBIN 29 pg (25-34); MEAN CORPUSCULAR HGB CONC 33 g/dL (32-36); MEAN CORPUSCULAR VOLUME 89 fL (80-99); MEAN PLATELET VOLUME 9.8 fL (9.0-12.2); MONOCYTES % (AUTO) 7 % (0-12); NEUTROPHILS # (AUTO) 9.6 10^3/uL (1.8-7.8); NEUTROPHILS % (AUTO) 67 % (42-75); PLATELET COUNT 242 10^3/uL (130-400); WHITE BLOOD COUNT 14.2 10^3/uL (4.3-11.0)
[2022-01-16 10:05] LABS: ALBUMIN 3.8 GM/DL (3.2-4.5); BILIRUBIN,TOTAL 0.5 MG/DL (0.1-1.0); CREATININE SERUM 0.98 MG/DL (0.60-1.30); POTASSIUM 3.8 MMOL/L (3.6-5.0); TOTAL PROTEIN 6.6 GM/DL (6.4-8.2)
[2022-01-16 10:39] LABS: BASOPHILS % (MANUAL) 2 %; EOSINOPHILS % (MANUAL) 6 %; LYMPHOCYTES % (MANUAL) 19 %; MONOCYTES % (MANUAL) 5 %; NEUTROPHILS % (MANUAL) 65 %
[2022-01-16 10:40] LABS: RBC MORPH NORMAL; REACTIVE LYMPHOCYTES 3 %
[2022-01-16 13:30] VITALS: BP 118/64
[2022-01-16 17:30] VITALS: BP 117/72
[2022-01-16] MEDS: CATHETER FLUSH 10 ML SYR IV PRN (17:43)
[2022-01-16 21:05] VITALS: BP 138/81
[2022-01-16] MEDS ORDERED: ONDANSETRON 4 MG (ZOFRAN) ORAL DISSOLVE TAB PO PRN (21:45)
[2022-01-16] MEDS: PROPRANOLOL 10 MG TABLET PO SCH (21:49)
[2022-01-17 00:12] VITALS: BP 117/64
[2022-01-17 04:35] VITALS: BP 110/65
[2022-01-17 06:41] LABS: BASOPHILS # (AUTO) 0.1 10^3/uL (0.0-0.1); BASOPHILS % (AUTO) 1 % (0-10); EOSINOPHILS # (AUTO) 0.6 10^3/uL (0.0-0.3); EOSINOPHILS % (AUTO) 4 % (0-10); HEMATOCRIT 41 % (35-52); HEMOGLOBIN 13.1 g/dL (11.5-16.0); LYMPHOCYTES # (AUTO) 2.8 10^3/uL (1.0-4.0); LYMPHOCYTES % (AUTO) 18 % (12-44); MEAN CORPUSCULAR HEMOGLOBIN 29 pg (25-34); MEAN CORPUSCULAR HGB CONC 32 g/dL (32-36); MEAN CORPUSCULAR VOLUME 92 fL (80-99); MEAN PLATELET VOLUME 11.1 fL (9.0-12.2); MONOCYTES # (AUTO) 1.5 10^3/uL (0.0-1.0); MONOCYTES % (AUTO) 10 % (0-12); NEUTROPHILS # (AUTO) 10.2 10^3/uL (1.8-7.8); NEUTROPHILS % (AUTO) 67 % (42-75); PLATELET COUNT 209 10^3/uL (130-400); WHITE BLOOD COUNT 15.3 10^3/uL (4.3-11.0)
[2022-01-17 08:00] VITALS: BP 106/60
[2022-01-17] MEDS: LEVOTHYROXINE 25 MCG (LEVOTHROID) TAB PO SCH (08:24)
[2022-01-17] MEDS: FAMOTIDINE 20 MG (PEPCID) TABLET PO SCH (08:35)
[2022-01-17] MEDS: DOCUSATE SODIUM 100 MG (COLACE) CAP PO SCH (09:00)
[2022-01-17] MEDS: AUGMENTIN 875 MG TAB (AMOXICILLIN/CLAVULANATE) PO SCH (10:31)
[2022-01-17 13:10] VITALS: BP 106/60
--- NOTE | 2022-01-17 15:25 | Progress Note ---
Standard Progress Note Progress Notes/Assess & Plan Date Seen by a Provider: Jan 17, 2022 Time Seen by a Provider: 10:00 Progress/Assessment & Plan S: Patient continues to do well with no complaints this AM. She is in good spirits. Per nursing, she did have an episode of emesis yesterday evening after taking oral antibiotic. Her symptoms have improved with taking oral zofran prior to taking her antibiotic. She continues to ambulating well, no abdominal pain. Passing flatus with normal BM. Urinating with no issues. Normal urine output. Denies fever, chills, n/v, body aches or chills, nausea or vomiting, O: VS - Last 72 Hours, by Label 01/14/22 01/14/22 01/15/22 01/15/22 16:21 20:17 01:20 03:21 Temp 37.3 37.0 36.5 Pulse 77 89 81 Resp 18 18 16 B/P (MAP) 119/62 (81) 124/76 (92) 123/59 (80) Pulse Ox 99 97 99 O2 Delivery Room Air Room Air Room Air 01/15/22 01/15/22 01/15/22 01/15/22 06:02 09:26 12:23 16:30 Temp 37.0 36.8 36.8 36.8 Pulse 70 83 78 80 Resp 16 16 16 16 B/P (MAP) 116/60 (78) 118/64 (82) 116/65 (82) 119/73 (88) Pulse Ox 98 98 98 98 O2 Delivery Room Air Room Air Room Air Room Air 01/15/22 01/16/22 01/16/22 01/16/22 21:18 03:15 08:30 13:30 Temp 37.4 36.3 37.0 36.6 Pulse 89 82 76 80 Resp 18 18 18 18 B/P (MAP) 129/66 (87) 111/52 (71) 108/57 (74) 118/64 (82) Pulse Ox 97 99 98 98 O2 Delivery Room Air Room Air Room Air Room Air 01/16/22 01/16/22 01/17/22 01/17/22 17:30 21:05 00:12 04:35 Temp 37.0 37.3 36.8 36.2 Pulse 79 90 81 75 Resp 18 18 18 18 B/P (MAP) 117/72 (87) 138/81 (100) 117/64 (81) 110/65 (80) Pulse Ox 98 99 99 97 O2 Delivery Room Air Room Air Room Air Room Air A/P: Mary Jo Anderson is a 31yo POD#9 s/p RA DEQUAN, BSO, admitted due to concerns for fever of unknown origin. High clinical suspicion that her fever is due to a small pelvic abscess. Patient has remained afebrile without any obvious signs of infection aside from WBC that has increased from 14 to 15 in the last 3 days. She has remained stable and will be discharged with oral antibiotics and close follow-up today. # Fever of Unknown Origin: Likely 2/2 small pelvic abscess. Urine culture is negative, Blood cultures pending with prelim negative as of day#4. Stool sample collected and negative for C. dif. CXR is negative for pneumonia or PE. CT is negative for DVT, but did not a 3.0 cm fluid collection in the pelvis. - s/p IV broad spectrum antibiotics. Augmentin 875/125mg q12 hrs for total of 5 days. Patient will take oral zofran 30 minutes before her antibiotic to assist with associated nausea and vomiting. - Will monitor vitals. - Patient has remained afebrile for >24 hours. Will discharge home today with plans for close follow-up with Dr. Harmon in 1 week. # Anxiety/Depression: Home Citalopram and propranolol ordered. # Diet: Regular diet ordered. Zofran, colace and pepcid ordered. # DVT ppx: SCDs in bed. Ambulation encouraged. # Dispo: Will discharge home today with plans for follow-up in office in 1 week. Appropriate precautions related to fever, chills, uncontrollable nausea and vomiting were reviewed with the patient. Final Diagnosis Pelvic Abscess, Postoperative fever Focused Exam Time of Focused Exam: 22:55 ALEKSANDR ISSA MD Jan 17, 2022 15:25
--- NOTE | 2022-01-17 15:32 | Short Stay Summary ---
Discharge Summary Hospital Course Was the Problem List Reviewed?: Yes Final Diagnosis: Postoperative fever, Pelvic Abscess Hospital Course Date of Admission: Jan 15, 2022 at 14:42 Admission Diagnosis : Family Physician/Provider: Sree Vargas DO Date of Discharge: 01/17/22 Discharge Diagnosis: Pelvic Abscess, Postoperative Fever Hospital Course: Mary Jo Anderson is a 31 yo female s/p RA DEQUAN BS with Dr. Harmon who presented on POD#4 due to postoperative fever. Her workup was negative for obvious source infection aside from a 3.0 cm collection of fluid in the pelvis. She was febrile to 102.7 F with an elevated lactic acid. She admitted and given IV antibiotics. While in house, she remained afebrile and asymptomatic on IV ant ibiotics. Blood cultures were preliminarily negative after 4 days of observation and urine culture was negative. On HD#3, she was transitioned to oral antibiotics and remained asymptomatic without fevers for 24 hours. The decision was made to proceed forward with discharge with Augmentin for 5 days. Keflex 500mg BID for 5 days was also added due to some new onset redness along her skin, concerning for mild cellulitis, that was noticed on the day of discharge. She is to follow-up with Dr. Harmon in 1 week. Labs and Pending Lab Test: Laboratory Tests 01/17/22 05:56: White Blood Count 15.3H, Red Blood Count 4.49, Hemoglobin 13.1, Hematocrit 41, Mean Corpuscular Volume 92, Mean Corpuscular Hemoglobin 29, Mean Corpuscular Hemoglobin Concent 32, Red Cell Distribution Width 12.5, Platelet Count 209, Mean Platelet Volume 11.1, Immature Granulocyte % (Auto) 1, Neutrophils (%) (Auto) 67, Lymphocytes (%) (Auto) 18, Monocytes (%) (Auto) 10, Eosinophils (%) (Auto) 4, Basophils (%) (Auto) 1, Neutrophils # (Auto) 10.2H, Lymphocytes # (Auto) 2.8, Monocytes # (Auto) 1.5H, Eosinophils # (Auto) 0.6H, Basophils # (Auto) 0.1, Immature Granulocyte # (Auto) 0.1 Microbiology 01/15/22 C. difficile GDH Antigen & Toxins - Final, Complete 01/12/22 Blood Culture - Preliminary, Resulted No growth 01/12/22 Urine Culture - Final, Complete See Comments Home Meds Active Amox Tr-K Clv 875-125 mg Tab (Amoxicillin/Potassium Clav) 875 Mg-125 Mg Tablet 875 Mg PO BID WITH MEALS 3 Days Docusate Sodium 100 Mg Capsule 100 Mg PO BID PRN Mi-Acid (Simethicone) 80 Mg Tab.chew 40 Mg PO TID PRN HYDROcodone/APAP 7.5/325 TAB (Acetaminophen/Hydrocodone Bitart) 1 Ea Tablet 1-2 Ea PO Q6HR PRN Ibu (Ibuprofen) 600 Mg Tablet 600 Mg PO Q6HR Reported Loratadine 10 Mg Tablet 10 Mg PO DAILY Propranolol HCl 10 Mg Tablet 10 Mg PO HS Levothyroxine (Levothyroxine Sodium) 25 Mcg Capsule 25 Mcg PO DAILY Multivitamin 1 Each Tablet 1 Each PO DAILY Citalopram HBr (Citalopram Hydrobromide) 20 Mg Tablet 20 Mg PO DAILY Assessment/Pt Instructions Patient was discharged home on HD#4 with Augmentin 875/125mg BID for a total of 5 days to treat the small pelvic abscess and Keflex 500mg BID for 5 days to treat for small cellulitis noted on last day of admission. Discharge Instructions Discharge Diet: No Restrictions Activity as Tolerated: Yes Discharge Physical Examination General Appearance: Alert Allergies: Coded Allergies: No Known Drug Allergies (Unverified , 07/21/17) Discharge Summary Date of Admission Jan 15, 2022 at 14:42 Date of Discharge Discharge Date: Jan 17, 2022 ALEKSANDR ISSA MD Jan 17, 2022 15:32
--- NOTE | 2022-01-18 21:16 | Physician Query Clarification ---
PQ-Link Infection to Dev/Proc Admission/Discharge Admission Date: Jan 15, 2022 at 14:42 Discharge Date: Jan 17, 2022 at 13:10 Dr. Bray, The medical record reflects the following clinical scenario: History/Risk Factors: s/p LAVH/BSO 01/08 Clinical Findings: T 39.1, P 123, R 18, WBC 13.6, Lactic acid 2.31, CT abd - Recent hysterectomy with a 3.5 x 1.8 x 3.0 cm fluid collection in the resection bed. This may be sterile or infected. Treatment: IV Piperacillin, IV Vancomycin Question: Can you specify if the sepsis is due to/associated with LAVH/BSO? Yes. I will specify in my Discharge summary. Please document a response in Progress Note or Discharge Summary. 1. Yes - sepsis is due to/associated with LAVH/BSO. 2. No - sepsis is due to/associated with LAVH/BSO. 3. No sepsis. Sepsis ruled out. 4. Other, with explanation of the clinical findings. 5. Clinically undetermined, no explanation for the clinical findings. PHYSICIAN RESPONSE Specify if infection: 1 Please remember a lack of response to the above will prompt a phone page by [facility] staff. In responding to this query, please exercise your independent professional ju dgment. The purpose of this communication is to more accurately reflect the complexity of your patients condition. The fact that a question is asked does not imply that any particular answer is desired or expected. Thank you for your timely response to this clarification. Requestors name: Tiffany THIS PHYSICIAN QUERY FORM IS A PERMANENT PART OF THE MEDICAL RECORD TIFFANY ROMAN Jan 18, 2022 21:16 ALEKSANDR BRAY MD Jan 19, 2022 10:14
== END 2022-01-17 13:10 | disposition home or self-care (01) | DRG 863 ==
LOC: EDUNIT# 21:46 → ER 21:48 → WS 21:49 → UNDOADMOB 01-13 00:25 → OBSVTOIN 01-15 14:42 → INTOOBSV 01-15 14:42 → UNDODISIN 01-17 13:10
PROVIDERS: ADMIT Obstetrics & Gynecology; ATTEND Obstetrics & Gynecology
DX: T81.43XA Infection following a procedure, organ and space surgical site, initial encounter (principal); L03.311 Cellulitis of abdominal wall; N73.9 Female pelvic inflammatory disease, unspecified; T81.44XA Sepsis following a procedure, initial encounter; T81.41XA Infection following a procedure, superficial incisional surgical site, initial encounter; K21.9 Gastro-esophageal reflux disease without esophagitis; E03.9 Hypothyroidism, unspecified; I10 Essential (primary) hypertension; F41.9 Anxiety disorder, unspecified; F32.A Depression, unspecified; Z20.822 Contact with and (suspected) exposure to COVID-19
CPT/HCPCS: 36415; 71045; 71260; 74177; 80053; 80202; 81000; 83605; 84145; 85007; 85025; 85027; 87040; 87088; 87324; 87449; 87636; G0378